=== PATIENT | male | born 1990 | race Caucasian/White ===

== ENCOUNTER 2020-05-24 23:44 | Emergency (ER) | payer MEDICAID, SELFPAY ==
--- NOTE | 2020-05-24 23:50 | ED.OVERDOSE ---
HPI - Overdose General Chief Complaint: ETOH/Substance Use Stated Complaint: etoh Time Seen by Provider: 05/24/20 23:47 History of Present Illness HPI Narrative: Patient is the young man hour the history of polysubstance abuse. Including alcohol, cocaine, heroin. Presented today completely agitated. Banging his head against a stretcher. Causing danger to himself. Patient refused to answer any questions. History of similar presentations in the past. Patient admits to using drugs. No suicidal homicidal ideation. Related Data Allergies Allergy/AdvReac Type Severity Reaction Status Date / Time acetaminophen [From TYLENOL] Allergy Unknown itchy Unverified 04/04/20 16:18 aspirin [ASA] AdvReac Unknown STOMACH Unverified 04/04/20 16:18 UPSET Review of Systems Review of Systems: Unable to obtain full review systems due to patient's condition. Yes Unobtainable due to mental status PMFSH Social History Social History Advance Directives: No Advance Directives Information Provided: No Physical Exam Vital Signs: Vital Signs: Last Vital Signs Temp 97.8 F 05/25/20 03:09 Pulse 70 05/25/20 03:24 Resp 18 05/25/20 03:24 BP 127/72 05/25/20 03:24 Pulse Ox 94 05/25/20 03:24 Body Mass Index 22.8 Appearance: Alert. Agitated Eyes: Pupils equal, round and reactive to light. ENT: Pharynx normal. Neck: Normal inspection. Neck supple. No lymph nodes noted. No crepitus CVS: Normal heart rate and rhythm. Pulses normal. Normal S1 and S2 Respiratory: No respiratory distress. Breath sounds normal. No Wheezing. No rales Abdomen: Soft and nontender. No rigidity. No distention. good BS x4 Skin: Skin warm and dry. Normal skin color. Normal skin turgor. Extremities: No lower extremity edema. Neurovascular intact to all extremities. No Lacerations. No Rash Neuro: Agitated banging his head against the stretcher Course Course Course Narrative: Patient completely agitated requiring chemical sedation as patient is unable to respond to verbal deescalation. Reevaluation(s) Reevaluation #1: Ketamine given. Will monitor very carefully Time: 00:01 MDM - Overdose MDM Narrative Medical decision making narrative: Patient extremely agitated requiring multiple doses of sedation including ketamine and also Haldol and Ativan. Now sleeping. Well appearing. Patient not suicidal homicidal will discharge patient home. Polysubstance abuse history. Patient told to stop using drugs Differential Diagnosis Differential diagnosis: Likely cocaine intoxication Medical Records Attestation: I reviewed the patient's medical records. Lab Data Attestation: I reviewed the patient's lab results. Labs: Lab Results 05/25/20 Range/Units 00:21 POC Glucose 97 (60-115) mg/dL Critical Care Time Critical Care Time Total Critical Care Time: 35 Attestation: I have personally provided 40 minutes of critical care time exclusive of time spent on separately billable procedures. Time includes review of lab data, radiology results, discussion with consultants, and monitoring for potential decompensation. Interventions were performed as documented above Discharge Plan Discharge Clinical Impression: Alcoholic intoxication, Substance abuse Patient Disposition: Home, Self-Care Instructions: Alcohol Intoxication (ED), Polysubstance Abuse (ED)
[2020-05-24 23:54] VITALS: BMI 22.8
[2020-05-24] MEDS: Ketamine HCl 500 MG/5 ML VIAL 250 MG IM (23:54)
--- NOTE | 2020-05-24 23:54 | PC.NURSE ---
Ketamine 250mg given IM to right deltoid. [address], ordered by . Security at bedside, belongings secured. Within visual field of nurse's station at ED Bed 22H. Will continue to monitor per protocol. Medicated shortly after arrival to ED due to combativeness/aggression with staff and EMS. Pt spitting at staff, swearing, threatening to hit staff. Pt admits to ETOH, cocaine, and heroin use.
[2020-05-25] VITALS (16 sets, daily range): BP systolic 111–145; BP diastolic 50–80; PULSE 70–102; RESP 16–18; TEMP 36.4–36.7; O2SAT 92–99
[2020-05-25 00:29] LABS: Glucose, Whole Blood 97 mg/dL (60-115)
--- NOTE | 2020-05-25 00:55 | PC.NURSE ---
Patient moaning and occasionally growling at staff. 4 point restraint remains. Previously given Ketamine at 23:54 on 05/24/2020. Will continue to monitor.
[2020-05-25] MEDS: Haloperidol Lactate 5 MG/ML VIAL IM (01:48)
[2020-05-25] MEDS: LORazepam 2 MG/ML VIAL IM (01:48)
--- NOTE | 2020-05-25 01:48 | PC.NURSE ---
Pt medicated with Ativan 2MG/Haldol 5MG IM to Right Thigh for behavioral control. Pt continues to scream and moan, is combative/agitated with staff. Slamming head against mattress. Refusing to answer questions. Will continue to monitor.
--- NOTE | 2020-05-25 03:24 | PC.NURSE ---
Bilateral Arm restraints removed. Security present. Pt continues to sleep/rest comfortably at this time. Vital signs remain stable. Will continue to monitor. Pt remains in clear view of staff at nurse's station.
--- NOTE | 2020-05-25 05:32 | PC.NURSE ---
PER , ALL BLOODWORK AND URINE SPECIMEN TO BE CANCELLED. DO NOT NEED TO COLLECT.
[2020-05-25 06:20] LABS: Glucose, Whole Blood 118 mg/dL (60-115)
== END 2020-05-25 06:28 | disposition home or self-care (01) ==
PROVIDERS: Emergency Provider Emergency Medicine Emergency Medical Services
DX: F10.129 Alcohol abuse with intoxication, unspecified (principal); F11.10 Opioid abuse, uncomplicated; F14.10 Cocaine abuse, uncomplicated; Y90.9 Presence of alcohol in blood, level not specified; Z71.51 Drug abuse counseling and surveillance of drug abuser
CPT/HCPCS: 82947; 96372; 99284; 99285; J2060

== ENCOUNTER 2020-05-25 07:21 | Emergency (ER) | payer MEDICAID, SELFPAY ==
[2020-05-25 07:28] VITALS: BP 113/64; PULSE 85; RESP 18; O2SAT 99; BMI 26.6
--- NOTE | 2020-05-25 07:36 | ED.PSYCH ---
HPI - Psych General Chief Complaint: ETOH/Substance Use Stated Complaint: TIREDNESS Time Seen by Provider: 05/25/20 07:36 Source: EMS Mode of arrival: EMS Limitations: altered mental status History of Present Illness HPI Narrative: patient found laying outside hospital after last ED visit when he was medicated for agitation MD complaint: altered mental status Onset (ago): hour(s) (few) Duration: constant History of same: Yes Relieving factors: none Exacerbating factors: medication (given 5mg haldol/2mg of ativan at 150 AM DC at 630AM) Context: recent drug abuse and new medication(s) Associated psychiatric symptoms: none Associated symptoms: denies other symptoms Treatments prior to arrival: none Related Data Allergies Allergy/AdvReac Type Severity Reaction Status Date / Time acetaminophen [From TYLENOL] Allergy Unknown itchy Unverified 04/04/20 16:18 aspirin [ASA] AdvReac Unknown STOMACH Unverified 04/04/20 16:18 UPSET Review of Systems Review of Systems: ROS unable to be obtained due to altered mental status [facility] Social History Social History (Updated 05/25/20 @ 07:38 by Magda Javed DO) Alcohol intake: current Smoking Status: Current every day smoker Use of substances other than those prescribed or required for medical reasons: Yes Advance Directives: No Advance Directives Information Provided: No Physical Exam Vital Signs: Vital Signs: Last Vital Signs Pulse 95 05/25/20 12:47 Resp 16 05/25/20 12:47 BP 127/77 05/25/20 12:47 Pulse Ox 97 05/25/20 09:12 Body Mass Index 26.6 Appearance: woken to sternal rub, withdraws from painful stimuli, unkempt, asleep Eyes: Pupils equal, round and reactive to light. ENT: Pharynx normal. Neck: Normal inspection. Neck supple. CVS: Normal heart rate and rhythm. Pulses normal. Respiratory: No respiratory distress. Breath sounds normal. able to protect airway Abdomen: Soft and nontender. Skin: Skin warm and dry. Normal skin color. Normal skin turgor. Extremities: No lower extremity edema. Neuro: moves extremities, withdraws from pain Course Course Course Narrative: patient has no complaints, awake and alert, offered detox, denies SI/HI wants to leave MDM - Psych MDM Narrative Medical decision making narrative: 29 yo male with substance abuse here with AMS from medications from previous visit - will need observation, no signs of trauma, dispo per clearance of substances Restraints Face to Face Assessment: [] Discharge Plan Discharge Clinical Impression: Substance abuse Patient Disposition: Home, Self-Care Instructions: Polysubstance Abuse (ED) Additional Instructions: return to ED for any worsening symptoms or concerns Referrals: [facility] [Physician] - 2 days (call hotline 08/02 at any time)
[2020-05-25 09:12] VITALS: BP 109/66; PULSE 94; O2SAT 97
[2020-05-25 10:15] VITALS: BP 120/72; PULSE 88; RESP 15
--- NOTE | 2020-05-25 10:17 | PC.NURSE ---
PT CONTINUES TO SLEEP, REPOSITIONS SELF. NO DISTRESS. RN WENT TO TALK WITH PT BUT HE KEPT EYES CLOSED AND ROLLED OVER.
[2020-05-25 12:47] VITALS: BP 127/77; PULSE 95; RESP 16
--- NOTE | 2020-05-25 12:48 | PC.NURSE ---
PT WOKE, TALKED WITH NURSE, ASKED HOW HE GOT HERE, EXPLAINED WHAT HAPPENED TO PT. PT CALM AND COOPERATIVE WITH STAFF. FELL BACK ASLEEP. WAS GIVEN DRINK AND FOOD. PT BROTHERS TO NOODLE MAKER WHEN HE IS READY FOR DC.
[2020-05-25 14:58] VITALS: BP 129/70; PULSE 89; RESP 20
--- NOTE | 2020-05-25 16:48 | PC.NURSE ---
call placed to brother who said he would be arriving in 20 minutes around 1530 to pickling grader patient, no answer.
[2020-05-25 16:53] VITALS: BP 128/68; PULSE 91; RESP 14; TEMP 36.8; O2SAT 96
[2020-05-27 08:26] LABS: Glucose, Whole Blood 114 mg/dL (60-115)
== END 2020-05-25 17:05 | disposition home or self-care (01) ==
PROVIDERS: Emergency Provider Emergency Medicine
DX: R41.82 Altered mental status, unspecified (principal); F17.200 Nicotine dependence, unspecified, uncomplicated; Z71.6 Tobacco abuse counseling
CPT/HCPCS: 82947; 99284

== ENCOUNTER 2020-06-08 03:23 | Inpatient (IN) | payer MEDICAID, SELFPAY ==
[2020-06-08] VITALS (9 sets, daily range): BP systolic 95–122; BP diastolic 38–78; PULSE 7–117; RESP 16–22; TEMP 36.6–37.4; O2SAT 93–100; BMI 27.1
--- NOTE | 2020-06-08 03:32 | ED_ITS ---
HPI - Fever General Chief Complaint: General Medical Stated Complaint: DRUG USE 20MIN AGO,FEVER,CHILLS,BODY PAIN SINCE Time Seen by Provider: 06/08/20 03:32 Source: patient and EMS Mode of arrival: EMS Limitations: no limitations History of Present Illness MD elicited complaint: fever and malaise Pertinent past history: other (IVDA) Onset (ago): minute(s) (20) Exacerbating factors: nothing Relieving factors: nothing Associated symptoms: chills, myalgias and chest pain Treatments prior to arrival fever: none Related Data Home Medications Medication Instructions Recorded Confirmed No Known Home Meds 06/08/20 06/08/20 Allergies Allergy/AdvReac Type Severity Reaction Status Date / Time aspirin [ASA] AdvReac Unknown STOMACH Verified 06/08/20 05:30 UPSET Review of Systems Review of Systems: Constitutional : No Weight loss, pos Fever, pos Chills ENT/Mouth : No sore throat, No Rhinorrhea Eyes: No Eye Pain, No Swelling Cardiovascular : pos Chest Pain, no SOB, no Dyspnea on Exertion, No Orthopnea, No Edema, No Palpitations Respiratory : No Cough, No Sputum Gastrointestinal : pos Nausea, No Vomiting, No Diarrhea, No abdominal Pain, No Hematochezia, No Melena Genitourinary : No Dysuria, No Urinary Frequency Musculoskeletal : No joint pain, pos Myalgias, No Joint Swelling Skin : No Skin Lesions, No rash Neuro : No Weakness, No Numbness, No Dizziness, No Headache Psych : No Anxiety/Panic, No Depression Heme/Lymph: No Bruising, No Lymphadenopathy Endocrine : No Polyuria, No Polydipsia All other systems reviewed and are negative [facility] Past Medical History Attestation statement: The following information was validated with the patient. Medical History (Updated 06/08/20 @ 06:22 by Magda Javed DO) Anxiety Polysubstance abuse Social History Social History (Updated 06/08/20 @ 03:36 by Magda Javed DO) Alcohol intake: never Smoking Status: Current every day smoker Use of substances other than those prescribed or required for medical reasons: Yes Substance Use Type: Crack/Cocaine and Heroin Substance Use Frequency: Daily Last Used Substance: Just Prior to Admission Any prior treatment program specific to substance use: Yes Advance Directives: No Physical Exam Vital Signs: Vital Signs: Last Vital Signs Temp 99 F 06/08/20 05:28 Pulse 117 H 06/08/20 05:41 Resp 22 H 06/08/20 05:33 BP 101/38 L 06/08/20 05:33 Pulse Ox 93 06/08/20 05:33 Body Mass Index 27.1 Appearance: Alert. Oriented X3. No acute distress. Eyes: Pupils equal, round and reactive to light. ENT: Pharynx normal. Neck: Normal inspection. Neck supple. CVS: Normal heart rate and rhythm. Pulses normal. Respiratory: No respiratory distress. Breath sounds normal. Abdomen: Soft and nontender. Skin: Skin warm and dry. Normal skin color. Normal skin turgor. Extremities: No lower extremity edema. No calf ttp Neuro: Oriented X 3. No motor deficit. No sensory deficit. Course Course Course Narrative: patient is awake no concern for opiate overdose but he had a large amount of emesis and had lower O2 sats afterwards, CT chest ordered for aspiration/pneumonia pending CT scan IV zosyn ordered empirically, aspirin held due to patient states he cannot tolerate it patient with very junky cough now post vomiting, already ordered zosyn, 88% on RA even after neb, planned admit at this time, seems most likely issue post vomiting, added on ddimer 94% on 2L NC MDM - Fever MDM Narrative Medical decision making narrative: 29 yo male with IVDA here with fevers/chills body aches 20 minutes after using IV cocaine c/o some chest pain as well at this time will need labs, cultures, lactic acid, CXR, PO motrin, COVID and flu swab - dispo per results and findings, could be cotton wool fever, doubt epidural abscess at this time given started 20 minutes after using Lab Data Result diagrams: 06/08/20 04:15 06/08/20 04:57 Labs: Lab Results 06/08/20 06/08/20 06/08/20 Range/Units 04:14 04:15 04:15 WBC 2.9 L (4.8-10.8) X10*3/uL RBC 4.76 (4.60-5.80) X10*6/uL Hgb 14.0 (14.0-18.0) g/dl Hct 41.8 L (42-52) % MCV 87.8 (80-98) fL MCH 29.4 (27.0-33.0) pg MCHC 33.5 (31.0-36.0) g/dl RDW 12.1 (11.0-16.0) % Plt Count 178 (160-400) X10*3/uL MPV 10.3 (9.4-12.4) fL Immature Gran % (Auto) 7.3 H (0.0-0.4) % Neut % (Auto) 61.7 (45-73) % Lymph % (Auto) 28.0 (20-40) % Garrett % (Auto) 0.3 L (2-11) % Eos % (Auto) 2.4 (0-4) % Baso % (Auto) 0.3 (0-2) % Lymph # (Auto) 0.8 L (1.2-4.9) X10*3/uL Garrett # (Auto) 0.0 L (0.1-1.2) X10*3/uL Eos # (Auto) 0.1 (0.0-0.4) X10*3/uL Baso # (Auto) 0.0 (0.0-0.2) X10*3/uL Abs Immat Gran (auto) 0.21 H (0.00-0.03) X10*3/uL Absolute Neuts (auto) 1.8 L (2.0-8.3) X10*3/uL Absolute Nucleated RBC 0.000 (0.0-0.012) X10*3/uL Nucleated RBC % (auto) 0.0 (0.0-0.2) /100WBC ESR (0-15) MM/HR PT 12.3 (10.8-13.0) SEC INR 1.0 (0.9-1.1) APTT 25.2 (24.1-38.0) SEC Hold Blue Top SEE NOTE Sodium Cancelled Potassium Cancelled Chloride Cancelled Carbon Dioxide Cancelled Anion Gap Cancelled BUN Cancelled Creatinine Cancelled Estim Creat Clear Calc Cancelled Estimated GFR Cancelled Random Glucose Cancelled Lactic Acid (0.5-2.0) mmol/L Calcium Cancelled Magnesium Cancelled Total Bilirubin Cancelled Direct Bilirubin Cancelled AST Cancelled ALT Cancelled Alkaline Phosphatase Cancelled Troponin I High Sens (<3.5-35.0) ng/L Total Protein Cancelled Albumin Cancelled Coronavirus (PCR) (Negative) Influenza Type A (PCR) (Negative) Influenza Type B (PCR) (Negative) RSV RNA Qual (PCR) (Negative) 06/08/20 06/08/20 06/08/20 Range/Units 04:15 04:16 04:16 WBC (4.8-10.8) X10*3/uL RBC (4.60-5.80) X10*6/uL Hgb (14.0-18.0) g/dl Hct (42-52) % MCV (80-98) fL MCH (27.0-33.0) pg MCHC (31.0-36.0) g/dl RDW (11.0-16.0) % Plt Count (160-400) X10*3/uL MPV (9.4-12.4) fL Immature Gran % (Auto) (0.0-0.4) % Neut % (Auto) (45-73) % Lymph % (Auto) (20-40) % Garrett % (Auto) (2-11) % Eos % (Auto) (0-4) % Baso % (Auto) (0-2) % Lymph # (Auto) (1.2-4.9) X10*3/uL Garrett # (Auto) (0.1-1.2) X10*3/uL Eos # (Auto) (0.0-0.4) X10*3/uL Baso # (Auto) (0.0-0.2) X10*3/uL Abs Immat Gran (auto) (0.00-0.03) X10*3/uL Absolute Neuts (auto) (2.0-8.3) X10*3/uL Absolute Nucleated RBC (0.0-0.012) X10*3/uL Nucleated RBC % (auto) (0.0-0.2) /100WBC ESR 13 (0-15) MM/HR PT (10.8-13.0) SEC INR (0.9-1.1) APTT (24.1-38.0) SEC Hold Blue Top Sodium Potassium Chloride Carbon Dioxide Anion Gap BUN Creatinine Estim Creat Clear Calc Estimated GFR Random Glucose Lactic Acid 1.5 (0.5-2.0) mmol/L Calcium Magnesium Total Bilirubin Direct Bilirubin AST ALT Alkaline Phosphatase Troponin I High Sens < 3.5 (<3.5-35.0) ng/L Total Protein Albumin Coronavirus (PCR) (Negative) Influenza Type A (PCR) (Negative) Influenza Type B (PCR) (Negative) RSV RNA Qual (PCR) (Negative) 06/08/20 06/08/20 Range/Units 04:17 04:57 WBC (4.8-10.8) X10*3/uL RBC (4.60-5.80) X10*6/uL Hgb (14.0-18.0) g/dl Hct (42-52) % MCV (80-98) fL MCH (27.0-33.0) pg MCHC (31.0-36.0) g/dl RDW (11.0-16.0) % Plt Count (160-400) X10*3/uL MPV (9.4-12.4) fL Immature Gran % (Auto) (0.0-0.4) % Neut % (Auto) (45-73) % Lymph % (Auto) (20-40) % Garrett % (Auto) (2-11) % Eos % (Auto) (0-4) % Baso % (Auto) (0-2) % Lymph # (Auto) (1.2-4.9) X10*3/uL Garrett # (Auto) (0.1-1.2) X10*3/uL Eos # (Auto) (0.0-0.4) X10*3/uL Baso # (Auto) (0.0-0.2) X10*3/uL Abs Immat Gran (auto) (0.00-0.03) X10*3/uL Absolute Neuts (auto) (2.0-8.3) X10*3/uL Absolute Nucleated RBC (0.0-0.012) X10*3/uL Nucleated RBC % (auto) (0.0-0.2) /100WBC ESR (0-15) MM/HR PT (10.8-13.0) SEC INR (0.9-1.1) APTT (24.1-38.0) SEC Hold Blue Top Sodium 137 Potassium 3.9 Chloride 99 Carbon Dioxide 29 Anion Gap 13 BUN 16 Creatinine 0.95 Estim Creat Clear Calc 119.5 Estimated GFR > 60 Random Glucose 98 Lactic Acid (0.5-2.0) mmol/L Calcium 9.0 Magnesium 1.7 Total Bilirubin 0.7 Direct Bilirubin 0.4 AST 171 H ALT 59 H Alkaline Phosphatase 155 H Troponin I High Sens (<3.5-35.0) ng/L Total Protein 6.6 Albumin 3.9 Coronavirus (PCR) NEGATIVE (Negative) Influenza Type A (PCR) NEGATIVE (Negative) Influenza Type B (PCR) NEGATIVE (Negative) RSV RNA Qual (PCR) NEGATIVE (Negative) ECG Data ECG #1: Attestation: I personally reviewed and interpreted this ECG as follows: ECG interpretation date: 06/08/20 ECG interpretation time: 05:28 Interpretation: Rate: 115 Rhythm: sinus tachycardia [place]: normal Normal P waves. Normal [place]. Normal QRS complex. ST T wave : no LUIS FELIPE, nonspecific qTC: normal prior studies: no acute ischemia The study has been interpreted contemporaneously by me. . Discharge Plan Discharge Clinical Impression: Hypoxia, Atypical chest pain, Active substance abuse Vomiting Qualifiers: Vomiting type: unspecified Vomiting Intractability: unspecified Nausea presence: with nausea Qualified Code(s): R11.2 - Nausea with vomiting, unsp ecified Patient Disposition: Admitted As Inpatient
--- NOTE | 2020-06-08 03:33 | ECG_ITS ---
Test Reason : CHEST PAIN Blood Pressure : / mmHG Vent. Rate : 115 BPM Atrial Rate : 115 BPM P-R Int : 118 ms QRS Dur : 084 ms QT Int : 320 ms P-R-T Axes : 074 047 017 degrees QTc Int : 442 ms Sinus tachycardia Nonspecific ST abnormality Abnormal ECG When compared with ECG of 31-AUG-2019 16:52, Heart rate has increased Nonspecific T wave abnormality is new Referred By: Magda Javed Electronically Signed By:TORRES GARCIAS MD
--- NOTE | 2020-06-08 03:33 | XR_ITS ---
EXAMINATION: XR CHEST CLINICAL INFORMATION: Pain COMPARISON: 08/28/2019 TECHNIQUE: Frontal view of the chest was obtained. FINDINGS: Lung volumes are symmetric. No focal consolidation is seen. No evidence of pneumothorax, pleural effusion, or pulmonary edema. The cardiomediastinal contour is unremarkable. No acute osseous findings are seen. XR/XR chest 1V IMPRESSION: No acute cardiopulmonary findings.
--- NOTE | 2020-06-08 03:45 | PC.NURSE ---
PT TO ROOM, CHG INTO GOWN AND MD AT BEDSIDE FOR EVAL. HL PLACED TO RIGHT UPPER ARM. PT IS A DIFFICULT STICK. LABS DRAWN TO LAB, BC X 2 OBTAINED AT THIS TIME.
--- NOTE | 2020-06-08 04:15 | PC.NURSE ---
LABS RE-DRAWN TO LAB.
[2020-06-08 04:22] LABS: Basophils Percent Auto 0.3 % (0-2); Eosinophils Absolute Auto 0.1 X10*3/uL (0.0-0.4); Eosinophils Percent Auto 2.4 % (0-4); Hematocrit 41.8 % (42-52); Imm Gran Abs Auto 0.21 X10*3/uL (0.00-0.03); Imm Gran Pct Auto 7.3 % (0.0-0.4); Lymphocytes Absolute Auto 0.8 X10*3/uL (1.2-4.9); MANUAL DIFF FLAG NO; Mean Corpuscular HGB Conc 33.5 g/dl (31.0-36.0); Mean Corpuscular Hemoglobin 29.4 pg (27.0-33.0); Mean Corpuscular Volume 87.8 fL (80-98); Mean Platelet Volume 10.3 fL (9.4-12.4); Monocytes Percent Auto 0.3 % (2-11); Neutrophils Absolute Auto 1.8 X10*3/uL (2.0-8.3); Neutrophils Percent Auto 61.7 % (45-73); Platelet Count 178 X10*3/uL (160-400); Red Blood Count 4.76 X10*6/uL (4.60-5.80); Red Cell Distribution Width 12.1 % (11.0-16.0); SCAN SMEAR FLAG 1; White Blood Count 2.9 X10*3/uL (4.8-10.8)
[2020-06-08] MEDS: Ibuprofen 600 MG TABLET PO (04:22)
[2020-06-08 04:34] LABS: Prothrombin Time 12.3 SEC (10.8-13.0)
[2020-06-08 04:37] LABS: Partial Thromboplastin Time 25.2 SEC (24.1-38.0)
[2020-06-08 04:39] LABS: Lactic Acid 1.5 mmol/L (0.5-2.0)
[2020-06-08 04:55] LABS: Erythrocyte Sedimentation Rate 13 MM/HR (0-15)
[2020-06-08] MEDS: ondansetron HCL 4 MG/2 ML VIAL IVPUSH (05:07)
--- NOTE | 2020-06-08 05:16 | PC.NURSE ---
PT VOMITED A LARGE AMT OF VOMIT ON THE FLOOR. MD AWARE AND PT MEDICATED WITH ZOFRAN IV PER EMAR.
[2020-06-08 05:20] LABS: Influenza A PCR NEGATIVE (Negative); Influenza B PCR NEGATIVE (Negative); Resp Syncy Virus RNA Qual PCR NEGATIVE (Negative); SARS COV2 PCR INHOUSE NEGATIVE (Negative)
--- NOTE | 2020-06-08 05:20 | PC.NURSE ---
PT TO ROOM
[2020-06-08 05:22] LABS: Troponin-I High Sensitivity < 3.5 ng/L (<3.5-35.0)
--- NOTE | 2020-06-08 05:24 | PC.NURSE ---
EKG OBTAINED TO
--- NOTE | 2020-06-08 05:31 | CT_ITS ---
EXAMINATION: CT CHEST WITHOUT CONTRAST CLINICAL INFORMATION: Fever, hypoxia after vomiting COMPARISON: Chest x-ray from earlier today TECHNIQUE: Multidetector volumetric CT imaging of the chest was done. Axial MIP volume rendering provided. Sagittal and coronal reformatted images were obtained. This CT examination was performed using dose optimization techniques as appropriate, variously including the following: *Automated exposure control *Adjustment of mA and/or kV according to patient size (this includes techniques or standardized protocols for targeted exams where dose is matched to indication/reason for exam; i.e. extremities or head) *Use of iterative reconstruction technique DLP: 263 mGy-cm FINDINGS: LUNGS: There are patchy dependent opacities in the bilateral lower lobes. Remainder of the lungs are clear. MEDIASTINUM: The visualized thyroid gland is unremarkable. Residual thymic tissue is suspected in the anterior mediastinum. There is suggestion of a borderline enlarged subcarinal lymph node, suboptimally assessed without intravenous contrast. Cardiac size is within normal limits; no pericardial effusion. PLEURA: Trace pleural effusions, right greater than left. No pneumothorax. AXILLA: No lymphadenopathy. UPPER ABDOMEN: Included portions of the liver and spleen appear prominent in size. OSSEOUS STRUCTURES: No acute findings identified. CT/CT chest wo con IMPRESSION: Patchy dependent opacities in the bilateral lower lobes. In the setting of recent vomiting and fever, this could reflect sequelae of aspiration and/or pneumonia. Trace pleural effusions, right greater than left.
[2020-06-08 05:40] LABS: Alanine Aminotransferase 59 U/L (0-40); Albumin Level 3.9 g/dL (3.5-5.0); Alkaline Phosphatase 155 U/L (39-117); Anion Gap 13 (12-20); Aspartate Amino Transferase 171 U/L (5-37); Bilirubin Direct 0.4 mg/dL (0.0-0.5); Bilirubin Total 0.7 mg/dL (0.0-1.0); Blood Urea Nitrogen 16 mg/dL (9-16); Carbon Dioxide 29 mmol/L (22-29); Chloride 99 mmol/L (96-108); Creatinine Clr Calc Pharmacy 119.5; Estimated Glomerular Filt Rate > 60; Glucose Random 98 mg/dL (60-115); Magnesium 1.7 mg/dL (1.6-2.6); Potassium 3.9 mmol/l (3.3-5.1); Sodium 137 mmol/L (135-145); Total Protein 6.6 g/dL (6.5-8.0)
[2020-06-08] MEDS: Albuterol Sulfate (0.083%) 2.5 MG/3 ML VIAL.NEB INHALE (05:41)
--- NOTE | 2020-06-08 05:53 | PC.NURSE ---
PT'S PO DROPS TO 88%, PT ENCOURAGE TO SIT UP AND TAKE DEEP BREATHS, PT REFUSING TO SIT UP, PT STATES WHEN I SIT UP IT MAKES ME NAUSEATED. PT ON 4L NC. AWARE. RESPIRATORY IN ROOM FOR RESPIRATORY TX. .
--- NOTE | 2020-06-08 05:56 | PC.NURSE ---
PT RETURNS TO ROOM IN STRETCHER. PT GIVEN URINAL FOR URINE SAMPLE.
--- NOTE | 2020-06-08 06:38 | PC.NURSE ---
IN ROOM FOR RE-EVAL. PT NOW ON 2L NC WITH PO 96% MD AWARE. PT REQUESTING KRUNAL MYRIAM TO DRINK. UA SENT TO LAB.
[2020-06-08 06:41] LABS: D Dimer 3593 NG/ML
--- NOTE | 2020-06-08 06:47 | CT_ITS ---
EXAMINATION: CT ANGIOGRAM CHEST CLINICAL INFORMATION: Elevated d-dimer. Evaluate for pulmonary embolism COMPARISON: Previous chest x-ray and noncontrast enhanced chest CT from earlier the same day TECHNIQUE: Multiple axial images were obtained through the chest after the administration of 65 mL of Omnipaque 350 intravenous contrast. Extensive vascular post-processing including two-dimensional and three-dimensional reformatted images were created and reviewed on an independent workstation. This CT examination was performed using dose optimization techniques as appropriate, variously including the following: *Automated exposure control *Adjustment of mA and/or kV according to patient size (this includes techniques or standardized protocols for targeted exams where dose is matched to indication/reason for exam; i.e. extremities or head) *Use of iterative reconstruction technique DLP: 256 mGy-cm FINDINGS: There is good opacification of the pulmonary arteries. No pulmonary embolism is seen. There is dependent atelectasis seen at the lung bases. The lungs are otherwise clear. There is a shotty mediastinal and bilateral hilar lymphadenopathy. There is a prominent soft tissue seen in the subcarinal region. This may represent wall thickening of the esophagus as opposed to lymphadenopathy. No abnormal air collection in the mediastinum is seen. The heart does not appear enlarged. The thoracic aorta is normal in caliber. There is no pericardial effusion. There is trace bilateral pleural effusions. No chest wall mass or enlarged axillary lymph nodes are seen. Images through the upper abdomen are unremarkable. Review at bone windows is normal. CT/CT angio chest IMPRESSION: No evidence of pulmonary embolism. Shotty mediastinal and bilateral hilar lymphadenopathy. Prominent soft tissue in the subcarinal region, question related to wall thickening of the esophagus as opposed to lymphadenopathy. Clinical correlation recommended. Dependent atelectasis at the lung bases and trace bilateral pleural effusions.
[2020-06-08 06:51] LABS: Glucose Urine UA NEG (NEG); Leukocyte Esterase Urine NEG (NEG); Nitrite Urine NEG (NEG); Urine Blood NEG (NEG); Urine Ketones NEG (NEG); Urine Protein NEG (NEG-TRACE)
[2020-06-08 06:52] LABS: Appearance Urine CLEAR; Color Urine YELLOW
[2020-06-08 07:23] LABS: Amphetamine Screen Urine Not Detected (Not Detect); Barbiturates, Urine Not Detected (Not Detect); Benzodiazepines Screen Urine POSITIVE (Not Detect); Cannabinoid Screen Urine Not Detected (Not Detect); Cocaine Screen Urine POSITIVE (Not Detect); Opiate Screen Urine POSITIVE (Not Detect); Phencyclidine Screen Urine Not Detected (Not Detect)
[2020-06-08] MEDS: Piperacillin Sodium/Tazobactam 3.375 GM in 0.9 % Sodium Chloride 50 ML IV ×3 (08:00→19:27)
[2020-06-08] MEDS: iohexoL 350 MG/ML 100 ML INFUS..BTL IV (08:04)
--- NOTE | 2020-06-08 08:09 | PM.IMHP ---
History of Present Illness Date of Service: 06/08/20 Chief Complaint: weakness shortness of breath 29-year-old male with significant history of drug abuse presented with feeling feverish body ache and chest pain, patient reported he shooted herione and cocaine last night and started having body aches chest pain 1 hour after injecting, patient also reported vomiting and nausea, patient denies any sick contact, patient was also reporting shortness of breath and cough, in the ER CT chest shows bilateral patchy opacities, COVID PCR was negative patient was given 1 dose of Zosyn and inpatient admission was requested Review of Systems Constitutional: Constitutional: Reports weakness Cardiovascular: Cardiovascular: Reports dyspnea Respiratory: Respiratory: Reports cough and Reports dyspnea Gastrointestinal: Gastrointestinal: Reports nausea and Reports vomiting Neurologic: Denies Sensory deficit (Neuro) [facility] Medical History (Updated 06/08/20 @ 14:00 by Tuan Hill MD) Anxiety Polysubstance abuse Family History (Updated 06/08/20 @ 13:57 by Tuan Hill MD) Other HTN (hypertension) Surgical History (Updated 06/08/20 @ 13:58 by Tuan Hill MD) No pertinent past surgical history Social History (Updated 06/08/20 @ 03:36 by Magda Javed DO) Household Members: Family Alcohol intake: never Smoking Status: Current every day smoker Tobacco Type: Cigarette Packs Per Day: 0.5 Cigarettes Per Day: 10.0 Years Smoked: 8 Smoked in Last 30 Days: Yes Patient Interested in Nicotine Replacement: Yes Patient Given Instructions on How to Stop Smoking: No Second Hand Smoke Exposure: Yes Use of substances other than those prescribed or required for medical reasons: Yes Substance Use Type: Crack/Cocaine, Heroin, IV Drugs, Opiates and Painkillers Substance Use Frequency: Chronic Longstanding Last Used Substance: Just Prior to Admission Currently Displaying Signs/Symptoms of Drug Intoxication Withdrawal: No Any prior treatment program specific to substance use: Yes Have you been hit, kicked, punched, or otherwise hurt by someone within the past year? If so, by whom?: No Do you feel safe in your current relationship?: No Current Relationship Is there a partner from a previous relationship who is making you feel unsafe now?: No Are you made to feel afraid or neglected: No Advance Directives: No Do you have thoughts of harming others: None Do you have a plan to hurt others: No Plan Recently lost weight without trying: Yes Meds Allergies Allergy/AdvReac Type Severity Reaction Status Date / Time aspirin [ASA] AdvReac Unknown STOMACH Verified 06/08/20 05:30 UPSET Home Medications Medication Instructions Recorded Confirmed Type No Known Home Meds 06/08/20 06/08/20 History Physical Exam Vital Signs and Narrative: Vital Signs: Last Vital Signs Temp 99.4 F 06/08/20 08:00 Pulse 93 06/08/20 08:00 Resp 19 06/08/20 08:00 BP 99/51 L 06/08/20 08:00 Pulse Ox 97 06/08/20 08:00 Body Mass Index 27.1 Const: General: no acute distress Resp: Auscultation: rhonchi Cardio: Jugular venous distension: no JVD Heart sounds: S1 normal heart sound present and S2 normal heart sound present GI: Inspection: Yes normal to inspection Palpation (GI): nontender Auscultation: normal bowel sounds Skin: General skin exam: no rashes or lesions noted Neuro: Sensory Exam: No Sensory deficit (Neuro) Results Labs CBC and Chem 7: 06/08/20 04:15 06/08/20 04:57 Labs: Laboratory Results - last 24 hr 06/08/20 06/08/20 06/08/20 04:14 04:15 04:15 MCV 87.8 MCH 29.4 MCHC 33.5 RDW 12.1 Plt Count 178 MPV 10.3 Immature Gran % (Auto) 7.3 H Neut % (Auto) 61.7 Lymph % (Auto) 28.0 [place] % (Auto) 0.3 L Eos % (Auto) 2.4 Baso % (Auto) 0.3 Lymph # (Auto) 0.8 L [place] # (Auto) 0.0 L Eos # (Auto) 0.1 Baso # (Auto) 0.0 Abs Immat Gran (auto) 0.21 H Absolute Neuts (auto) 1.8 L Absolute Nucleated RBC 0.000 Nucleated RBC % (auto) 0.0 ESR PT 12.3 INR 1.0 APTT 25.2 D-Dimer [id number] Hold Blue Top SEE NOTE Anion Gap Cancelled Estim Creat Clear Calc Cancelled Estimated GFR Cancelled Random Glucose Cancelled Lactic Acid Calcium Cancelled Magnesium Cancelled Total Bilirubin Cancelled Direct Bilirubin Cancelled AST Cancelled ALT Cancelled Alkaline Phosphatase Cancelled Troponin I High Sens Total Protein Cancelled Albumin Cancelled Urine Color Urine Appearance Urine pH Ur Specific [employer] Urine Protein Urine Glucose (UA) Urine Ketones Urine Blood Urine Nitrite Ur Leukocyte Esterase Urine Opiates Screen Ur Barbiturates Screen Ur Phencyclidine Scrn Ur Amphetamines Screen U Benzodiazepines Scrn Urine Cocaine Screen U Marijuana (THC) Screen Coronavirus (PCR) Influenza Type A (PCR) Influenza Type B (PCR) RSV RNA Qual (PCR) 06/08/20 06/08/20 06/08/20 04:15 04:16 04:16 MCV MCH MCHC RDW Plt Count MPV Immature Gran % (Auto) Neut % (Auto) Lymph % (Auto) [place] % (Auto) Eos % (Auto) Baso % (Auto) Lymph # (Auto) [place] # (Auto) Eos # (Auto) Baso # (Auto) Abs Immat Gran (auto) Absolute Neuts (auto) Absolute Nucleated RBC Nucleated RBC % (auto) ESR 13 PT INR APTT D-Dimer Hold Blue Top Anion Gap Estim Creat Clear Calc Estimated GFR Random Glucose Lactic Acid 1.5 Calcium Magnesium Total Bilirubin Direct Bilirubin AST ALT Alkaline Phosphatase Troponin I High Sens < 3.5 Total Protein Albumin Urine Color Urine Appearance Urine pH Ur Specific [employer] Urine Protein Urine Glucose (UA) Urine Ketones Urine Blood Urine Nitrite Ur Leukocyte Esterase Urine Opiates Screen Ur Barbiturates Screen Ur Phencyclidine Scrn Ur Amphetamines Screen U Benzodiazepines Scrn Urine Cocaine Screen U Marijuana (THC) Screen Coronavirus (PCR) Influenza Type A (PCR) Influenza Type B (PCR) RSV RNA Qual (PCR) 06/08/20 06/08/20 06/08/20 04:17 04:57 06:37 MCV MCH MCHC RDW Plt Count MPV Immature Gran % (Auto) Neut % (Auto) Lymph % (Auto) [place] % (Auto) Eos % (Auto) Baso % (Auto) Lymph # (Auto) [place] # (Auto) Eos # (Auto) Baso # (Auto) Abs Immat Gran (auto) Absolute Neuts (auto) Absolute Nucleated RBC Nucleated RBC % (auto) ESR PT INR APTT D-Dimer Hold Blue Top Anion Gap 13 Estim Creat Clear Calc 119.5 Estimated GFR > 60 Random Glucose 98 Lactic Acid Calcium 9.0 Magnesium 1.7 Total Bilirubin 0.7 Direct Bilirubin 0.4 AST 171 H ALT 59 H Alkaline Phosphatase 155 H Troponin I High Sens Total Protein 6.6 Albumin 3.9 Urine Color YELLOW Urine Appearance CLEAR Urine pH 6.0 Ur Specific [employer] 1.020 Urine Protein NEG Urine Glucose (UA) NEG Urine Ketones NEG Urine Blood NEG Urine Nitrite NEG Ur Leukocyte Esterase NEG Urine Opiates Screen Ur Barbiturates Screen Ur Phencyclidine Scrn Ur Amphetamines Screen U Benzodiazepines Scrn Urine Cocaine Screen U Marijuana (THC) Screen Coronavirus (PCR) NEGATIVE Influenza Type A (PCR) NEGATIVE Influenza Type B (PCR) NEGATIVE RSV RNA Qual (PCR) NEGATIVE 06/08/20 06:37 MCV MCH MCHC RDW Plt Count MPV Immature Gran % (Auto) Neut % (Auto) Lymph % (Auto) [place] % (Auto) Eos % (Auto) Baso % (Auto) Lymph # (Auto) [place] # (Auto) Eos # (Auto) Baso # (Auto) Abs Immat Gran (auto) Absolute Neuts (auto) Absolute Nucleated RBC Nucleated RBC % (auto) ESR PT INR APTT D-Dimer Hold Blue Top Anion Gap Estim Creat Clear Calc Estimated GFR Random Glucose Lactic Acid Calcium Magnesium Total Bilirubin Direct Bilirubin AST ALT Alkaline Phosphatase Troponin I High Sens Total Protein Albumin Urine Color Urine Appearance Urine pH Ur Specific [employer] Urine Protein Urine Glucose (UA) Urine Ketones Urine Blood Urine Nitrite Ur Leukocyte Esterase Urine Opiates Screen POSITIVE H Ur Barbiturates Screen Not Detected Ur Phencyclidine Scrn Not Detected Ur Amphetamines Screen Not Detected U Benzodiazepines Scrn POSITIVE H Urine Cocaine Screen POSITIVE H U Marijuana (THC) Screen Not Detected Coronavirus (PCR) Influenza Type A (PCR) Influenza Type B (PCR) RSV RNA Qual (PCR) Imaging Radiologist's Impressions: Impressions Chest X-Ray 06/08/20 03:33 IMPRESSION: No acute cardiopulmonary findings. Chest CT 06/08/20 05:31 IMPRESSION: Patchy dependent opacities in the bilateral lower lobes. In the setting of recent vomiting and fever, this could reflect sequelae of aspiration and/or pneumonia. Trace pleural effusions, right greater than left. Assessment and Plan (1) Sepsis: Status: Acute (2) Aspiration pneumonia: Status: Acute (3) Hypoxia: Status: Acute (4) Vomiting: Qualifiers: Nausea presence: with nausea Vomiting Intractability: unspecified Vomiting type: unspecified Qualified Code(s): R11.2 - Nausea with vomiting, unspecified Status: Acute (5) Atypical chest pain: Status: Acute (6) Active substance abuse: Status: Acute 29-year-old male IV drug user presented with nausea vomiting body aches chest pain and shortness of breath Sepsis likely secondary to aspiration pneumonia rule out bacteremia given IV drug use will start on Vanco and Zosyn follow-up cultures monitor Vanco trough continue oxygen supplementation active IV drug user with drug dependence urine toxicology positive for cocaine and opioid no signs of withdrawal at this time monitor closely for withdrawal Will get care team consult chest pain likely secondary to cocaine use and pneumonia high sensitivity troponin negative EKG shows no ischemia ACS less likely continue supportive management DVT prophylaxis with Lovenox
--- NOTE | 2020-06-08 08:40 | PC.NURSE ---
RECEIVED REPORT SANTHOSH PETTIT RN THIS AM AT 0700. PT AWAITING ADMISSION FOR BILAT PNEUMONIA. ZOSYN UP PER ORDERS. HAD CHEST CTA FOR ELEVATED D-DIMMER.
--- NOTE | 2020-06-08 10:33 | PC.NURSE ---
PT HAS BED ASSIGNED ON [facility]. AWAITING REPORT TO BE GIVEN. VITALS UPDATED
--- NOTE | 2020-06-08 11:18 | PC.NURSE ---
call to [facility]. rn will call ed for report.
[2020-06-08] MEDS: 0.9 % Sodium Chloride 1,000 ML 100 ML IVCONT ×2 (13:25→22:09)
[2020-06-08] MEDS: Enoxaparin Sodium 40 MG/0.4 ML SYRINGE SUBCUT (13:30)
[2020-06-08] MEDS: vancomycin HCL 1,000 MG in 0.9 % Sodium Chloride 250 ML 270 MG IV ×2 (13:56→21:27)
--- NOTE | 2020-06-08 15:28 | PC.NURSE ---
pt has been tearful, also yelling at staff, occasionally swearing. She states she wants to go home and does not understand why she is being kept here, also wants her son to visit. Attempted to reorient PT to situation, she states understanding but remains tearful. Pt states she is 89 years old and ready to go . Explored comfort options with pt, she states she will try getting up to a recliner.
[2020-06-09] VITALS (9 sets, daily range): BP systolic 116–142; BP diastolic 64–86; PULSE 60–87; RESP 16–18; TEMP 36.4–37.2; O2SAT 97–100
[2020-06-09] MEDS: 0.9 % Sodium Chloride Flush 3 ML SYRINGE IVFLUSH (00:07)
[2020-06-09] MEDS: LORazepam 2 MG/ML VIAL 1 MG IVPUSH ×2 (00:07→15:29)
[2020-06-09] MEDS: vancomycin HCL 1,000 MG in 0.9 % Sodium Chloride 250 ML 270 MG IV ×2 (04:25→14:31)
[2020-06-09] MEDS: Acetaminophen 325 MG TABLET 650 MG PO (04:36)
[2020-06-09 06:34] LABS: MANUAL DIFF FLAG NO
[2020-06-09 06:44] LABS: Basophils Absolute Auto 0.1 X10*3/uL (0.0-0.2); Basophils Percent Auto 0.4 % (0-2); Eosinophils Absolute Auto 0.5 X10*3/uL (0.0-0.4); Eosinophils Percent Auto 4.5 % (0-4); Hematocrit 35.1 % (42-52); Hemoglobin 11.8 g/dl (14.0-18.0); Imm Gran Abs Auto 0.05 X10*3/uL (0.00-0.03); Imm Gran Pct Auto 0.4 % (0.0-0.4); Lymphocytes Absolute Auto 1.4 X10*3/uL (1.2-4.9); Lymphocytes Percent Auto 12.9 % (20-40); Mean Corpuscular HGB Conc 33.6 g/dl (31.0-36.0); Mean Corpuscular Hemoglobin 29.3 pg (27.0-33.0); Mean Corpuscular Volume 87.1 fL (80-98); Mean Platelet Volume 11.2 fL (9.4-12.4); Monocytes Absolute Auto 0.5 X10*3/uL (0.1-1.2); Neutrophils Absolute Auto 8.6 X10*3/uL (2.0-8.3); Neutrophils Percent Auto 77.8 % (45-73); Platelet Count 192 X10*3/uL (160-400); Red Blood Count 4.03 X10*6/uL (4.60-5.80); Red Cell Distribution Width 12.3 % (11.0-16.0); White Blood Count 11.1 X10*3/uL (4.8-10.8)
[2020-06-09] MEDS: Piperacillin Sodium/Tazobactam 3.375 GM in 0.9 % Sodium Chloride 50 ML IV ×4 (06:54→19:24)
[2020-06-09 07:01] LABS: Anion Gap 10 (12-20); Blood Urea Nitrogen 18 mg/dL (9-16); Carbon Dioxide 26 mmol/L (22-29); Chloride 106 mmol/L (96-108); Estimated Glomerular Filt Rate > 60; Glucose Random 97 mg/dL (60-115); Potassium 3.8 mmol/l (3.3-5.1); Sodium 138 mmol/L (135-145)
[2020-06-09 07:29] LABS: Calcium 8.3 mg/dL (8.4-10.2)
[2020-06-09] MEDS: 0.9 % Sodium Chloride 1,000 ML 100 ML IVCONT ×2 (09:12→20:07)
[2020-06-09] MEDS: Morphine Sulfate 2 MG/ML CARTRIDGE IVPUSH ×2 (11:21→20:02)
[2020-06-09] MEDS: Enoxaparin Sodium 40 MG/0.4 ML SYRINGE SUBCUT (12:30)
[2020-06-09 12:38] LABS: Vancomycin Trough 11.7 mcg/mL (10.0-20.0)
[2020-06-09] MEDS: cloNIDine HCL 0.1 MG TABLET PO (14:29)
--- NOTE | 2020-06-09 15:21 | HO.PM.IMPN ---
Subjective Subjective Date of Service: 06/09/20 Interval History: Patient seen and examined at bedside patient reported body aches and trouble breathing Constitutional Constitutional: Reports weakness Cardiovascular Cardiovascular: Reports dyspnea Respiratory Respiratory: Reports cough and Reports dyspnea Gastrointestinal Gastrointestinal: Reports nausea and Reports vomiting Neurologic Neurologic: Denies Sensory deficit (Neuro) and Reports weakness Physical Exam Const: General: no acute distress Resp: Auscultation: rhonchi Cardio: Jugular venous distension: no JVD Heart sounds: S1 normal heart sound present and S2 normal heart sound present GI: Inspection: Yes normal to inspection Palpation (GI): nontender Auscultation: normal bowel sounds Skin: General skin exam: no rashes or lesions noted Neuro: Sensory Exam: No Sensory deficit (Neuro) Objective Data Current Medications Generic Name Dose Route Start Last Admin Trade Name Freq PRN Reason Stop Dose Admin Acetaminophen 650 mg 06/09/20 04:26 06/09/20 04:36 Acetaminophen 325 Mg Tablet PO 650 mg Q6H PRN Administration Pain and Fever Clonidine HCl 0.1 mg 06/09/20 15:00 06/09/20 14:29 Clonidine Hcl 0.1 Mg Tablet PO 0.1 mg TID PRN Administration Opiate Withdrawal Protocol Enoxaparin Sodium 40 mg 06/08/20 13:00 06/09/20 12:30 Enoxaparin Sodium 40 Mg/0.4 Ml Syringe SUBCUT 40 mg Q24H MAIRA Administration Sodium Chloride 1,000 mls @ 100 mls/hr 06/08/20 12:01 06/09/20 09:12 Ns IVCONT 100 mls/hr .Q10H MAIRA Infusion Piperacillin Sod/Tazobactam 50 mls @ 100 mls/hr 06/08/20 12:01 06/09/20 12:29 Sod 3.375 gm/ Sodium Chloride IV 100 mls/hr Q6H MAIRA Administration Vancomycin HCl 1,000 mg/ 270 mls @ 270 mls/hr 06/08/20 13:00 06/09/20 14:31 Sodium Chloride IV 270 mls/hr Q8H MAIRA Administration Lorazepam 1 mg 06/08/20 12:01 06/09/20 00:07 Lorazepam 2 Mg/Ml Vial IVPUSH 1 mg Q6H PRN Administration anxiety/restlessness Morphine Sulfate 2 mg 06/09/20 10:39 06/09/20 11:21 Morphine Sulfate 2 Mg/Ml Cartridge IVPUSH 2 mg Q4H PRN Administration Pain, Severe (Pain Scale 7-10) Ondansetron HCl 4 mg 06/08/20 12:01 Ondansetron Hcl 4 Mg/2 Ml Vial IVPUSH Q6H PRN Vomiting Sodium Chloride 3 ml 06/08/20 16:00 06/09/20 06:52 0.9 % Sodium Chloride Flush 3 Ml Syringe IVFLUSH Not Given QSHIFT MAIRA Labs CBC & Chem 7: 06/09/20 06:09 06/09/20 06:09 Microbiology Microbiology Results: Microbiology 06/08/20 04:14 Blood - Venous Blood Culture - Preliminary No growth after 24 hours. 06/08/20 04:14 Blood - Venous Blood Culture - Preliminary No growth after 24 hours. Assessment and Plan (1) Sepsis: Status: Acute (2) Aspiration pneumonia: Status: Acute (3) Hypoxia: Status: Acute (4) Vomiting: Status: Acute (5) Atypical chest pain: Status: Acute (6) Active substance abuse: Status: Acute Assessment and Plan: 29-year-old male IV drug user presented with nausea vomiting body aches chest pain and shortness of breath Sepsis likely secondary to aspiration pneumonia rule out bacteremia given IV drug use continue Vanco and Zosyn blood culture pending monitor Vanco trough continue oxygen supplementation Active IV drug user with drug dependence urine toxicology positive for cocaine and opioid continue Ativan and clonidine for withdrawal patient is interested in Suboxone will get psych consult tomorrow for Suboxone Chest pain likely secondary to cocaine use and pneumonia resolved high sensitivity troponin negative EKG shows no ischemia ACS less likely continue supportive management DVT prophylaxis with Lovenox
--- NOTE | 2020-06-09 16:19 | MHC.CM.PN ---
CM ATTEMPTED TO SEE PT WHO IS SLEEPING AND DOES NOT RESPOND TO CM KNOCK OR HIS NAME BEING CALLED. CM WILL REVISIT TOMORROW
[2020-06-09 20:51] LABS: Vancomycin Trough 15.3 mcg/mL (10.0-20.0)
[2020-06-10] MEDS: Morphine Sulfate 2 MG/ML CARTRIDGE IVPUSH ×2 (01:04→08:49)
[2020-06-10] MEDS: Piperacillin Sodium/Tazobactam 3.375 GM in 0.9 % Sodium Chloride 50 ML IV ×3 (01:18→12:13)
[2020-06-10] MEDS: LORazepam 2 MG/ML VIAL 1 MG IVPUSH (01:25)
[2020-06-10] MEDS: vancomycin HCL 1,000 MG in 0.9 % Sodium Chloride 250 ML 270 MG IV ×2 (01:28→08:23)
[2020-06-10 04:00] VITALS: BP 130/90; PULSE 65; RESP 20; TEMP 36.8; O2SAT 97
[2020-06-10] MEDS: 0.9 % Sodium Chloride 1,000 ML 100 ML IVCONT (06:07)
[2020-06-10 06:38] LABS: MANUAL DIFF FLAG NO
[2020-06-10 06:50] LABS: Basophils Percent Auto 0.3 % (0-2); Eosinophils Absolute Auto 0.3 X10*3/uL (0.0-0.4); Eosinophils Percent Auto 3.3 % (0-4); Hematocrit 36.1 % (42-52); Hemoglobin 12.2 g/dl (14.0-18.0); Imm Gran Abs Auto 0.04 X10*3/uL (0.00-0.03); Imm Gran Pct Auto 0.4 % (0.0-0.4); Lymphocytes Absolute Auto 1.9 X10*3/uL (1.2-4.9); Lymphocytes Percent Auto 19.3 % (20-40); Mean Corpuscular HGB Conc 33.8 g/dl (31.0-36.0); Mean Corpuscular Hemoglobin 28.6 pg (27.0-33.0); Mean Corpuscular Volume 84.7 fL (80-98); Mean Platelet Volume 11.1 fL (9.4-12.4); Monocytes Absolute Auto 0.6 X10*3/uL (0.1-1.2); Monocytes Percent Auto 5.9 % (2-11); Neutrophils Absolute Auto 6.9 X10*3/uL (2.0-8.3); Neutrophils Percent Auto 70.8 % (45-73); Platelet Count 219 X10*3/uL (160-400); Red Blood Count 4.26 X10*6/uL (4.60-5.80); Red Cell Distribution Width 12.2 % (11.0-16.0); White Blood Count 9.7 X10*3/uL (4.8-10.8)
[2020-06-10 07:13] LABS: Anion Gap 15 (12-20); Blood Urea Nitrogen 15 mg/dL (9-16); Calcium 8.4 mg/dL (8.4-10.2); Carbon Dioxide 21 mmol/L (22-29); Chloride 108 mmol/L (96-108); Creatinine Clr Calc Pharmacy 147.4; Estimated Glomerular Filt Rate > 60; Glucose Random 92 mg/dL (60-115); Potassium 3.8 mmol/l (3.3-5.1); Sodium 140 mmol/L (135-145)
[2020-06-10 08:00] VITALS: BP 153/96; PULSE 58; RESP 20; TEMP 36.4; O2SAT 97
--- NOTE | 2020-06-10 09:32 | PM.EVENT ---
Event Note Date of Service: 06/10/20 Event Note: Addiction consult note: patient with OUD currently medically admitted with pneumonia. Consult requested as patient expressing desire to restart suboxone Pt seen briefly, as he was sleepy. (received 2mg morphine about an hour ago) Chart reviewed. Full consult note to follow once patient able to participate in interview. He did state he wanted to start suboxone again. Plan: -D/C Morphine -Monitor for withdrawal sx using COWS -Plan to restart suboxone once clinically appropriate
--- NOTE | 2020-06-10 11:20 | MHC.CM.PN ---
Male 29 DX Sepsis R/T aspiration pneumonia. He does not have a PCP. The [facility] MD pamphlet was provided. The importance of having a PCP was instructed. DP home no services family transport. CM will follow. CM went to interview this Patient several times before obtaining a limited amount of infomation. He appeared to be sleeping. He was likely awake.
--- NOTE | 2020-06-10 11:54 | PC.NURSE ---
Addendum entered by Linda Trent RN 06/10/20 14:31: Pt stillrequesting to leave MD estephania aware. pt signed out [place] Original Note: Pt was sleeping all morning. Pt woke up and said he is sick as a dog and cant stop having diarrhea all over himself. Educated pt on w/d symptoms and that we are planning onstarting suboxone this evening. Pt said he can't wait that long, explained we needed to wait for the morphine to get out of his system. Pt says he wants to leave. [employer] sent to . Will continue to monitor.
[2020-06-10 12:00] VITALS: BP 148/84; PULSE 68; RESP 18; TEMP 36.9; O2SAT 97
[2020-06-10] MEDS: hydrOXYzine HCL 25 MG TABLET PO (12:13)
[2020-06-10] MEDS: ondansetron HCL 4 MG/2 ML VIAL IVPUSH (12:13)
[2020-06-10] MEDS: Enoxaparin Sodium 40 MG/0.4 ML SYRINGE SUBCUT (12:58)
[2020-06-10] MEDS: Buprenorphine/Naloxone 2/0.5mg FILM 1 FILM SUBLINGUAL (12:58)
[2020-06-10] MEDS: Buprenorphine/Naloxone 4/1 mg FILM 1 FILM SUBLINGUAL (13:35)
--- NOTE | 2020-06-10 15:09 | PM.DS ---
DS: Providers Provider Date of admission: 06/08/20 08:04 Primary care physician: Unknown Physician Consults: 06/10/20 08:21 Consult to Psychiatry Routine Consulting Provider: Harriet Croft Reason for consultation: drug abuse DS: Diagnosis Discharge Diagnosis (1) Sepsis: Status: Acute (2) Aspiration pneumonia: Status: Acute (3) Hypoxia: Status: Acute (4) Vomiting: Status: Acute (5) Atypical chest pain: Status: Acute (6) Active substance abuse: Status: Acute DS: Medications Discharge Medications Home Medications: Previous Rx's Medication Instructions Recorded amoxicillin-pot clavulanate 1 tab PO BID #14 tab 06/10/20 [Augmentin] buprenorphine 8 mg-naloxone 2 mg 1 film SUBLINGUAL .twice a day #8 06/10/20 sublingual film ea naloxone 4 mg/actuation nasal spray 4 mg INTRANASAL Q2M PRN #1 ea 06/10/20 DS: Summary Hospital Course Hospital Course: history of presenting illness Chief Complaint: weakness shortness of breath 29-year-old male with significant history of drug abuse presented with feeling feverish body ache and chest pain, patient reported he shooted herione and cocaine last night and started having body aches chest pain 1 hour after injecting, patient also reported vomiting and nausea, patient denies any sick contact, patient was also reporting shortness of breath and cough, in the ER CT chest shows bilateral patchy opacities, COVID PCR was negative patient was given 1 dose of Zosyn and inpatient admission was requested hospital course Sepsis likely secondary to aspiration pneumonia, WBC normalized blood cultures x2 showed no growth, patient treated with Vanco and Zosyn, patient decided to leave against medical advise therefore will discharge him on Augmentin , inform patient he will benefit for 1 more day of IV antibiotic due to persistent cough and mild shortness of breath and withdrawal symptoms. Active IV drug user with drug dependence , patient evaluated by Harriet Croft from Psychiatry she discontinued IV morphine and patient was supposed to be placed on Suboxone however patient decided to leave against medical advice, outpatient referrals given and Suboxone has been called in by psych Chest pain likely secondary to cocaine use and pneumonia resolved, high sensitivity troponin negative EKG shows no ischemia ACS less likely Time Spent with Patient Time attestation: Total time spent providing and/or coordinating discharge services: Physical Exam Vital Signs: Vital Signs: Last Vital Signs Temp 98.5 F 06/10/20 12:00 Pulse 68 06/10/20 12:00 Resp 18 06/10/20 12:00 BP 148/84 H 06/10/20 12:00 Pulse Ox 97 06/10/20 12:00 Body Mass Index 27.1 General patient resting comfortably in no acute distress. Neck is supple no JVD. CVS regular rate rhythm, Respiratory no respiratory distress, bibasilar rhonchii. Gastrointestinal abdomen soft, nontender, bowel sounds audible, Extremities no clubbing cyanosis or edema. Neuro nonfocal DS: Data Data Completed and Pending Labs on day of discharge: 06/08/20 03:33 ECG 12 lead EKG Stat EKG Documentation DIRECTED XR chest 1V Stat 06/08/20 03:34 Ibuprofen [Motrin] 600 mg PO ONCE ONE 06/08/20 04:15 Complete Blood Count Auto Diff Stat D Dimer Stat Hold Lt Blue - Possible Coag Stat Partial Thromboplastin Time Stat Prothrombin Time INR Stat Troponin-I High Sensitivity Stat 06/08/20 04:16 Erythrocyte Sedimentation Rate Stat Lactic Acid Stat 06/08/20 04:17 SARS-CoV2/FLU/RSV Stat 06/08/20 04:57 Basic Metabolic Panel Stat Liver Panel Stat Magnesium Stat 06/08/20 05:01 ondansetron HCL [Zofran] 4 mg IVPUSH ONCE ONE 06/08/20 05:29 Albuterol Sulfate (0.083%) [Ventolin (0.083%)] 2.5 mg INHALE ONCE ONE 06/08/20 05:31 CT chest wo con Stat 06/08/20 05:50 Piperacillin Sodium/Tazobactam [Zosyn] 3.375 gm 0.9 % Sodium Chloride [Ns] 50 ml IV ONCE 06/08/20 06:19 Add Laboratory Test Stat 06/08/20 06:37 Drug Screen Urine Stat UA CC w/rflx Micro + Cult Stat 06/08/20 06:47 CT angio chest Stat 06/08/20 07:24 Piperacillin Sodium/Tazobactam [Zosyn] 3.375 gm IV .STK-MED ONE 06/08/20 08:00 Transfer Order Routine 06/08/20 08:01 Code Status Routine 06/08/20 08:04 iohexoL 350 MG/ML [Omnipaque 350 MG/ML] 100 ml IV ONCE ONE 06/08/20 12:01 0.9 % Sodium Chloride [Ns] 1,000 ml IVCONT 100 mls/hr LORazepam [Ativan] 1 mg IVPUSH Q6H PRN Piperacillin Sodium/Tazobactam [Zosyn] 3.375 gm 0.9 % Sodium Chloride [Ns] 50 ml IV Q6H ondansetron HCL [Zofran] 4 mg IVPUSH Q6H PRN 06/08/20 12:01 Cont. Telemetry w/Vital Sign limit Q4HR IV insert/maintain Q4HR Intake and Output QSHIFTE Pulse Oximetry Q4HR Vital Signs Q4HR 06/08/20 13:00 Enoxaparin Sodium [Lovenox] 40 mg SUBCUT Q24H vancomycin HCL 1,000 mg 0.9 % Sodium Chloride [Ns] 250 ml IV Q8H 06/08/20 13:02 Piperacillin Sodium/Tazobactam [Zosyn] 3.375 gm IV .STK-MED ONE 06/08/20 13:41 vancomycin HCL 1,000 mg .ROUTE .STK-MED ONE 06/08/20 16:00 0.9 % Sodium Chloride Flush [NS Flush] 3 ml IVFLUSH QSHIFT 06/08/20 19:22 Piperacillin Sodium/Tazobactam [Zosyn] 3.375 gm IV .STK-MED ONE 06/08/20 21:23 vancomycin HCL 1,000 mg .ROUTE .STK-MED ONE 06/08/20 23:54 Piperacillin Sodium/Tazobactam [Zosyn] 3.375 gm IV .STK-MED ONE 06/09/20 04:16 vancomycin HCL 1,000 mg .ROUTE .STK-MED ONE 06/09/20 04:26 Acetaminophen [Tylenol] 650 mg PO Q6H PRN 06/09/20 06:09 Basic Metabolic Panel DAILY@0600 Complete Blood Count Auto Diff DAILY@0600 06/09/20 07:11 Piperacillin Sodium/Tazobactam [Zosyn] 3.375 gm IV .STK-MED ONE 06/09/20 10:39 Morphine Sulfate 2 mg IVPUSH Q4H PRN 06/09/20 11:53 Vancomycin Trough Stat 06/09/20 12:11 Piperacillin Sodium/Tazobactam [Zosyn] 3.375 gm IV .STK-MED ONE 06/09/20 14:26 vancomycin HCL 1,000 mg .ROUTE .STK-MED ONE 06/09/20 15:00 cloNIDine HCL [Catapres] 0.1 mg PO TID PRN 06/09/20 19:21 Piperacillin Sodium/Tazobactam [Zosyn] 3.375 gm IV .STK-MED ONE 06/09/20 20:12 Vancomycin Trough Stat 06/10/20 00:55 Piperacillin Sodium/Tazobactam [Zosyn] 3.375 gm IV .STK-MED ONE 06/10/20 00:56 vancomycin HCL 1,000 mg .ROUTE .STK-MED ONE 06/10/20 05:24 Basic Metabolic Panel DAILY@0600 Complete Blood Count Auto Diff DAILY@0600 06/10/20 06:15 Piperacillin Sodium/Tazobactam [Zosyn] 3.375 gm IV .STK-MED ONE 06/10/20 08:18 vancomycin HCL 1,000 mg .ROUTE .STK-MED ONE 06/10/20 09:00 vancomycin HCL 1,000 mg 0.9 % Sodium Chloride [Ns] 250 ml IV Q8H 06/10/20 11:01 guaiFENesin DM 100/10/5 ML [Robitussin DM 100/10/5 ML] 10 ml PO Q6H PRN hydrOXYzine HCL [Atarax] 25 mg PO Q6H PRN 06/10/20 12:06 Piperacillin Sodium/Tazobactam [Zosyn] 3.375 gm IV .STK-MED ONE 06/10/20 12:13 Buprenorphine/Naloxone 2/0.5mg [Suboxone 2/0.5 mg] 1 film SUBLINGUAL ONCE ONE 06/10/20 13:24 Buprenorphine/Naloxone 4/1 mg [Suboxone 4/1 mg] 1 film SUBLINGUAL ONCE ONE Laboratory Last Values WBC 9.7 X10*3/uL (4.8-10.8) 06/10/20 05:24 RBC 4.26 X10*6/uL (4.60-5.80) L 06/10/20 05:24 Hgb 12.2 g/dl (14.0-18.0) L 06/10/20 05:24 Hct 36.1 % (42-52) L 06/10/20 05:24 MCV 84.7 fL (80-98) 06/10/20 05:24 MCH 28.6 pg (27.0-33.0) 06/10/20 05:24 MCHC 33.8 g/dl (31.0-36.0) 06/10/20 05:24 RDW 12.2 % (11.0-16.0) 06/10/20 05:24 Plt Count 219 X10*3/uL (160-400) 06/10/20 05:24 MPV 11.1 fL (9.4-12.4) 06/10/20 05:24 Immature Gran % (Auto) 0.4 % (0.0-0.4) 06/10/20 05:24 Neut % (Auto) 70.8 % (45-73) 06/10/20 05:24 Lymph % (Auto) 19.3 % (20-40) L 06/10/20 05:24 [place] % (Auto) 5.9 % (2-11) 06/10/20 05:24 Eos % (Auto) 3.3 % (0-4) 06/10/20 05:24 Baso % (Auto) 0.3 % (0-2) 06/10/20 05:24 Lymph # (Auto) 1.9 X10*3/uL (1.2-4.9) 06/10/20 05:24 [place] # (Auto) 0.6 X10*3/uL (0.1-1.2) 06/10/20 05:24 Eos # (Auto) 0.3 X10*3/uL (0.0-0.4) 06/10/20 05:24 Baso # (Auto) 0.0 X10*3/uL (0.0-0.2) 06/10/20 05:24 Abs Immat Gran (auto) 0.04 X10*3/uL (0.00-0.03) H 06/10/20 05:24 Absolute Neuts (auto) 6.9 X10*3/uL (2.0-8.3) 06/10/20 05:24 Absolute Nucleated RBC 0.000 X10*3/uL (0.0-0.012) 06/10/20 05:24 Nucleated RBC % (auto) 0.0 /100WBC (0.0-0.2) 06/10/20 05:24 ESR 13 MM/HR (0-15) 06/08/20 04:16 PT 12.3 SEC (10.8-13.0) 06/08/20 04:15 INR 1.0 (0.9-1.1) 06/08/20 04:15 APTT 25.2 SEC (24.1-38.0) 06/08/20 04:15 D-Dimer 3593 NG/ML 06/08/20 04:15 Hold Blue Top SEE NOTE 06/08/20 04:15 Sodium 140 mmol/L (135-145) 06/10/20 05:24 Potassium 3.8 mmol/l (3.3-5.1) 06/10/20 05:24 Chloride 108 mmol/L (96-108) 06/10/20 05:24 Carbon Dioxide 21 mmol/L (22-29) L 06/10/20 05:24 Anion Gap 15 (12-20) 06/10/20 05:24 BUN 15 mg/dL (9-16) 06/10/20 05:24 Creatinine 0.77 mg/dL (0.5-1.4) 06/10/20 05:24 Estim Creat Clear Calc 147.4 06/10/20 05:24 Estimated GFR > 60 06/10/20 05:24 Random Glucose 92 mg/dL (60-115) 06/10/20 05:24 Lactic Acid 1.5 mmol/L (0.5-2.0) 06/08/20 04:16 Calcium 8.4 mg/dL (8.4-10.2) 06/10/20 05:24 Magnesium 1.7 mg/dL (1.6-2.6) 06/08/20 04:57 Total Bilirubin 0.7 mg/dL (0.0-1.0) 06/08/20 04:57 Direct Bilirubin 0.4 mg/dL (0.0-0.5) 06/08/20 04:57 AST 171 U/L (5-37) H 06/08/20 04:57 ALT 59 U/L (0-40) H 06/08/20 04:57 Alkaline Phosphatase 155 U/L (39-117) H 06/08/20 04:57 Troponin I High Sens < 3.5 ng/L (<3.5-35.0) 06/08/20 04:15 Total Protein 6.6 g/dL (6.5-8.0) 06/08/20 04:57 Albumin 3.9 g/dL (3.5-5.0) 06/08/20 04:57 Urine Color YELLOW 06/08/20 06:37 Urine Appearance CLEAR 06/08/20 06:37 Urine pH 6.0 (5.0-8.0) 06/08/20 06:37 Ur Specific [place] 1.020 (1.005-1.025) 06/08/20 06:37 Urine Protein NEG MG/DL (NEG-TRACE) 06/08/20 06:37 Urine Glucose (UA) NEG MG/DL (NEG) 06/08/20 06:37 Urine Ketones NEG MG/DL (NEG) 06/08/20 06:37 Urine Blood NEG (NEG) 06/08/20 06:37 Urine Nitrite NEG (NEG) 06/08/20 06:37 Ur Leukocyte Esterase NEG (NEG) 06/08/20 06:37 Vancomycin Trough 15.3 mcg/mL (10.0-20.0) 06/09/20 20:12 Urine Opiates Screen POSITIVE (Not Detect) H 06/08/20 06:37 Ur Barbiturates Screen Not Detected (Not Detect) 06/08/20 06:37 Ur Phencyclidine Scrn Not Detected (Not Detect) 06/08/20 06:37 Ur Amphetamines Screen Not Detected (Not Detect) 06/08/20 06:37 U Benzodiazepines Scrn POSITIVE (Not Detect) H 06/08/20 06:37 Urine Cocaine Screen POSITIVE (Not Detect) H 06/08/20 06:37 U Marijuana (THC) Screen Not Detected (Not Detect) 06/08/20 06:37 Coronavirus (PCR) NEGATIVE (Negative) 06/08/20 04:17 Influenza Type A (PCR) NEGATIVE (Negative) 06/08/20 04:17 Influenza Type B (PCR) NEGATIVE (Negative) 06/08/20 04:17 RSV RNA Qual (PCR) NEGATIVE (Negative) 06/08/20 04:17 Preliminary micro results at discharge 06/08/20 04:14 Blood Culture - Preliminary Blood - Venous No growth after 48 hours. 06/08/20 04:14 Blood Culture - Preliminary Blood - Venous No growth after 48 hours. Discharge Plan Discharge Patient Disposition: Left Against Medical Advice Referrals: Physician,Unknown [Primary Care Provider] - Discharge Medications: New amoxicillin-pot clavulanate [Augmentin] 875-125 mg tablet 1 tab PO BID Qty: 14 RF: 0 Continued buprenorphine-naloxone [Suboxone] 8-2 mg film 1 film sublingual .twice a day Qty: 8 RF: 0 Narcan 4 mg/actuation spray,non-aerosol 4 mg intranasal Q2M PRN (Reason: opioid overdose) Qty: 1 RF: 0 Discharge Orders: Discharge Order (Routine); Ordered 06/10/20 Ordered By: Albino Nesbitt Diet: regular diet Activity on Discharge: As tolerated Discharge Date/Time: 06/10/20 14:18 Care Plan Goals: strongly recommend to abstain from illicit drug use and follow-up with primary care physician Health Concerns: as above, take antibiotic as prescribed Plan of Treatment: follow-up with PCP.
--- NOTE | 2020-06-10 15:11 | MHC.CM.PN ---
DC today home no services. Patient arranged for private transportation.
== END 2020-06-10 14:18 | disposition left against medical advice (07) | DRG 720 ==
LOC: HO.ED 06:22 → HO.IMC 09:30
PROVIDERS: Admitting Provider Internal Medicine; Emergency Provider Emergency Medicine; Visit Provider Hospitalist
DX: A41.9 Sepsis, unspecified organism (principal); J69.0 Pneumonitis due to inhalation of food and vomit; F11.20 Opioid dependence, uncomplicated; F41.9 Anxiety disorder, unspecified; R09.02 Hypoxemia; Z20.828 Contact with and (suspected) exposure to other viral communicable diseases
CPT/HCPCS: 0241U; 36415; 71045; 71250; 71275; 80048; 80076; 80202; 80307; 81003; 83605; 83735; 84484; 85025; 85379; 85610; 85652; 85730; 87040; 93005; 94640; 96365; 96375; 99285; J0572; J0573; J1650; J2060; J2270; J2405; J2543; J3370; Q9967

== ENCOUNTER 2020-10-19 02:02 | Emergency (ER) | payer MEDICAID, SELFPAY ==
[2020-10-19 02:09] VITALS: BP 156/92; PULSE 70; RESP 16; TEMP 36.7; O2SAT 98; BMI 24.3
--- NOTE | 2020-10-19 03:21 | ED.DENTAL ---
HPI - Dental/Oral General Chief complaint: Dental/Oral Stated complaint: Dental pain Time Seen by Provider: 10/19/20 03:20 Source: patient Mode of arrival: ambulatory Limitations: no limitations History of Present Illness HPI Narrative: 30-year-old male with 3rd lower left molar tooth pain started about 4 hours ago, pain in the whole left side of the face, pain described as throbbing pain coming from the toes radiating to the left ear and left jaw. Related Data Previous Rx's Medication Instructions Recorded amoxicillin-pot clavulanate 1 tab PO BID #14 tab 06/10/20 [Augmentin] buprenorphine 8 mg-naloxone 2 mg 1 film SUBLINGUAL .twice a day #8 06/10/20 sublingual film ea naloxone 4 mg/actuation nasal spray 4 mg INTRANASAL Q2M PRN #1 ea 06/10/20 amoxicillin 500 mg PO Q8H #14 cap 10/19/20 Allergies Allergy/AdvReac Type Severity Reaction Status Date / Time aspirin [ASA] AdvReac Unknown STOMACH Verified 06/08/20 05:30 UPSET Review of Systems Review of Systems: All other systems are reviewed and are negative Constitutional: Reports as per HPI and Reports no additional constitutional complaints Eyes: Reports as per HPI and Reports no additional eye complaints Reports system reviewed and no additional complaints, except as documented Cardiovascular: Reports as per HPI and Reports no additional cardiovascular complaints Respiratory: Reports as per HPI and Reports no additional respiratory complaints Gastrointestinal: Reports as per HPI and Reports no additional gastrointestinal complaints Genitourinary: Reports no additional female genitourinary complaints Musculoskeletal: Reports no additional musculoskeletal complaints Skin/Breast: Reports system reviewed and no additional complaints, except as docu Psychiatric: Reports no additional psychiatric complaints Endocrine: Reports no additional endocrine complaints Hematologic/Lymphatic: Reports no additional hematologic/lymphatic complaints Allergic/Immunologic: Reports no additional allergic/immunologic complaints Reports system reviewed and no additional complaints, except as documented and Reports Abnormal speech present [facility] Past Medical History Medical History Anxiety Polysubstance abuse Surgical History No pertinent past surgical history Family History Family History Other HTN (hypertension) Social History Social History Household Members: Family Alcohol intake: never Smoking Status: Current every day smoker Tobacco Type: Cigarette Packs Per Day: 0.5 Cigarettes Per Day: 10.0 Years Smoked: 8 Second Hand Smoke Exposure: Yes Substance Use Type: Crack/Cocaine, Heroin, IV Drugs, Opiates and Painkillers Advance Directives: No Advance Directives Information Provided: No service: No Current occupational status: unemployed Physical Exam Vital Signs: Vital Signs: Last Vital Signs Temp 98.0 F 10/19/20 02:09 Pulse 70 10/19/20 02:09 Resp 16 10/19/20 02:09 BP 156/92 H 10/19/20 02:09 Pulse Ox 98 10/19/20 02:09 Body Mass Index 24.3 Vital signs have been reviewed as appeared to be correct. Blood pressure elevated. Heart rate normal. Respiration rate normal. Temperature normal. Oxygen saturation normal. Appearance: Alert. Oriented X3. No acute distress. Head: Normal external exam. Normocephalic. Atraumatic. No Javed signs noted. No raccoon eyes noted Eyes: PERRLA. EOMI. Conjunctiva and sclera normal. Eyelids normal. ENT: TM's Normal. Pharynx normal. Uvula midline. Moist mucous membranes. No trismus noted. No drooling noted. No muffled voice noted. Dental exam: Tenderness over 3rd lower left molar tooth, with slight tenderness and swelling gum around the tooth but no fluctuation or abscess. Neck: Normal inspection. Neck supple. FROM. No adenopathy. Thyroid Normal. No meningeal signs. No neck mass noted. CVS: Normal heart rate and rhythm. Heart sound normal. No murmurs noted. Pulses normal throughout. Respiratory: No respiratory distress. Painless inspiration. Breath sounds normal. No wheezes/rales/rhonchi noted. Chest nontender. No accessory muscle usage noted or decreased air movement noted. Abdomen: Soft and nontender. Bowel sounds normal in all 4 quadrants. No distention noted. No organomegaly noted. No visible injury noted. Back: No CVA tenderness. Full range of motion noted. Skin: Skin warm and dry. Normal skin color. Normal skin turgor. No rashes/lesions/lacerations noted. Extremities: No lower extremity edema. Extremities exhibit normal range of motion. Extremities nontender. Neuro: Oriented X 3. No motor deficit. No sensory deficit. Reflexes normal. Course Course Course Narrative: Assessment and plan. 30-year-old male with history of polysubstance abuse, came in with severe dental pain. Will start the patient on amoxicillin for dental infection, give the patient only 1 dose of oxycodone. Patient was instructed to follow-up with the walk-in dental clinic tomorrow morning. Discharge Plan Discharge Clinical Impression: Toothache, Dental caries Patient Disposition: Home, Self-Care Instructions: Toothache (ED) Additional Instructions: Need to follow up with a walk-in dental clinic tomorrow. Prescriptions: New amoxicillin 500 mg capsule 500 mg PO Q8H Qty: 14 RF: 0 No Action buprenorphine-naloxone [Suboxone] 8-2 mg film 1 film sublingual .twice a day Qty: 8 RF: 0 Narcan 4 mg/actuation spray,non-aerosol 4 mg intranasal Q2M PRN (Reason: opioid overdose) Qty: 1 RF: 0 amoxicillin-pot clavulanate [Augmentin] 875-125 mg tablet 1 tab PO BID Qty: 14 RF: 0 Referrals: Physician,None [Primary Care Provider] - 2 days
[2020-10-19] MEDS: Amoxicillin 500 MG CAPSULE PO (03:27)
[2020-10-19] MEDS: oxyCODONE HCl Immed Release 5 MG TABLET PO (03:27)
--- NOTE | 2020-10-19 03:29 | PC.NURSE ---
patient medicated per MD Paul orders. Medicated with amoxicillin & oxycodone 5mg PO. Plan for discharge home with follow-up encouraged at [facility] tomorrow morning. Pt reports left lower jaw dental pain, and I have a hole in my tooth . Pt agreeable to plan, awaiting discharge paperwork.
== END 2020-10-19 03:36 | disposition home or self-care (01) ==
PROVIDERS: Emergency Provider Emergency Medicine
DX: K08.89 Other specified disorders of teeth and supporting structures (principal); K02.9 Dental caries, unspecified; F11.10 Opioid abuse, uncomplicated; F14.10 Cocaine abuse, uncomplicated; F17.210 Nicotine dependence, cigarettes, uncomplicated
CPT/HCPCS: 99283; 99284

== ENCOUNTER 2021-01-17 03:19 | Emergency (ER) | payer MEDICAID, SELFPAY ==
[2021-01-17 03:58] VITALS: BP 115/64; PULSE 67; RESP 16; TEMP 36.6; O2SAT 98; BMI 22.9
--- NOTE | 2021-01-17 04:06 | ED_ITS ---
HPI - General Adult General Chief complaint: General Medical Stated complaint: numb hand Time Seen by Provider: 01/17/21 04:06 Source: patient Mode of arrival: ambulatory History of Present Illness HPI narrative: 30-year-old male with history of IVDA and last injection was approximately 2 hours ago and was injected at the left AC. Patient states that he awoke from sleep and found that his left hand was numb with some difficulty on extension at the wrist. He states he went back to sleep and when he woke up it was still unchanged. He denies any trauma, but states he may have slept on it wrong. Related Data Previous Rx's Medication Instructions Recorded amoxicillin-pot clavulanate 1 tab PO BID #14 tab 06/10/20 [Augmentin] buprenorphine 8 mg-naloxone 2 mg 1 film SUBLINGUAL .twice a day #8 06/10/20 sublingual film ea naloxone 4 mg/actuation nasal spray 4 mg INTRANASAL Q2M PRN #1 ea 06/10/20 amoxicillin 500 mg PO Q8H #14 cap 10/19/20 Allergies Allergy/AdvReac Type Severity Reaction Status Date / Time aspirin [ASA] AdvReac Unknown STOMACH Verified 06/08/20 05:30 UPSET Review of Systems Review of Systems: Pertinent positives and negatives as stated in the HPI and 10 point review of systems is otherwise negative. [facility] Past Medical History Source: nursing notes reviewed Medical History Anxiety Polysubstance abuse Surgical History No pertinent past surgical history Family History Family History Other HTN (hypertension) Social History Social History Household Members: Family Alcohol intake: current Cigarette Packs Per Day: 0.5 Cigarettes Per Day: 10.0 Years Smoked: 8 Second Hand Smoke Exposure: Yes Substance Use Type: Crack/Cocaine, Heroin, IV Drugs and Opiates Advance Directives: No service: No Current occupational status: unemployed Physical Exam Vital Signs: Vital Signs: Last Vital Signs Temp 97.9 F 01/17/21 03:58 Pulse 67 01/17/21 03:58 Resp 16 01/17/21 03:58 BP 115/64 01/17/21 03:58 Pulse Ox 98 01/17/21 03:58 Body Mass Index 22.9 VITAL SIGNS: Reviewed. GENERAL: Well developed, well nourished, in no acute distress. HEAD: Normocephalic/atraumatic, EYES: PERRLA, EOMI OROPHARYNX: no oral lesions noted, posterior pharynx clear NECK: Supple, no adenopathy LUNGS: Normal breath sounds. No adventitious sounds or accessory muscle use. SpO2<98> CARDIOVASCULAR: Regular rate and rhythm without noted murmurs ABDOMEN: Soft, non-tender, non-distended with bowel sounds. LEFT UPPER EXTREMITY: On evaluation of the shoulder there is full range of motion without difficulty and sensation is intact, on evaluation of the elbow there is full range of motion with sensation intact, on evaluation of the wrist there is flexion / weakened hand dictaphone operator / inability to extend /supination and pronation are intact, engagement of the brachial radialis is intact. SKIN: Inspection of the skin reveals no rashes NEUROLOGIC: Alert and oriented x 4. Strength and sensation to light touch were grossly intact x 4. Course Course Course Narrative: 30-year-old male with history and clinical presentation initially concerning for possible radial nerve injury, however supination / tricep engagement / brachial radialis engagement are intact which is inconsistent with an inability to extend at the wrist. There is good wrist flexion but poor hand dictaphone operator, again this is counter intuitive. Will continue to observe in the event that this is a benign neuropathy. 0500:On re-evaluation function of the hand has significantly improved with controlled extension noted at the wrist and improved hand dictaphone operator. Suspect this may have been a benign palsy secondary to sleep position. 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 Follow-up with your primary care provider in the next 2-3 days for re- evaluation. 2. Recommend using [id number] Tylenol/ ibuprofen as needed for additional symptom relief. Return to the ER for acute worsening of symptoms. Prescriptions: No Action buprenorphine-naloxone [Suboxone] 8-2 mg film 1 film sublingual .twice a day Qty: 8 RF: 0 Narcan 4 mg/actuation spray,non-aerosol 4 mg intranasal Q2M PRN (Reason: opioid overdose) Qty: 1 RF: 0 amoxicillin-pot clavulanate [Augmentin] 875-125 mg tablet 1 tab PO BID Qty: 14 RF: 0 amoxicillin 500 mg capsule 500 mg PO Q8H Qty: 14 RF: 0 Referrals: Physician,None [Primary Care Provider] - 2 days
[2021-01-17 05:34] VITALS: BP 115/65; PULSE 67; RESP 16; O2SAT 99
== END 2021-01-17 05:37 | disposition home or self-care (01) ==
PROVIDERS: Emergency Provider Student in an Organized Health Care Education/Training Program
DX: G56.32 Lesion of radial nerve, left upper limb (principal); F19.10 Other psychoactive substance abuse, uncomplicated; F17.210 Nicotine dependence, cigarettes, uncomplicated
CPT/HCPCS: 99282; 99284

== ENCOUNTER 2021-05-30 16:19 | Emergency (ER) | payer MEDICAID, SELFPAY ==
[2021-05-30 16:54] VITALS: BP 120/70; PULSE 99; RESP 18; TEMP 36.6; O2SAT 100; BMI 22.9
== END 2021-05-30 19:42 | disposition left against medical advice (07) ==
PROVIDERS: Emergency Provider Emergency Medicine
DX: K08.89 Other specified disorders of teeth and supporting structures (principal)
CPT/HCPCS: 99281; 99282

== ENCOUNTER 2021-07-09 01:34 | Emergency (ER) | payer MEDICAID, SELFPAY ==
[2021-07-09 01:45] VITALS: BP 136/86; PULSE 95; RESP 18; TEMP 36.6; O2SAT 98; BMI 22.9
[2021-07-09 01:52] VITALS: BP 128/79; PULSE 94; RESP 16; TEMP 36.6; O2SAT 97
--- NOTE | 2021-07-09 02:13 | ED.DENTAL ---
HPI - Dental/Oral General Chief complaint: Dental/Oral Stated complaint: cracked tooth while eating Time Seen by Provider: 07/09/21 02:13 Source: patient Mode of arrival: ambulatory Limitations: no limitations History of Present Illness HPI Narrative: Patient with diffuse caries chipped his right lower molar earlier today while eating anxious complaining of pain asking for antibiotics Related Data Previous Rx's Medication Instructions Recorded amoxicillin 875 mg-potassium 1 tab PO BID #14 tab 06/10/20 clavulanate 125 mg tablet (Augmentin) buprenorphine 8 mg-naloxone 2 mg 1 film SUBLINGUAL .twice a day #8 06/10/20 sublingual film (Suboxone) ea naloxone 4 mg/actuation nasal 4 mg INTRANASAL Q2M PRN #1 ea 06/10/20 spray (Narcan) amoxicillin 500 mg capsule 500 mg PO Q8H #14 cap 10/19/20 ibuprofen 600 mg tablet 600 mg PO Q6H PRN #20 tab 07/09/21 penicillin V potassium 500 mg 500 mg PO QID #40 tab 07/09/21 tablet Allergies Allergy/AdvReac Type Severity Reaction Status Date / Time aspirin [ASA] AdvReac Unknown STOMACH Verified 05/30/21 16:54 UPSET Review of Systems Review of Systems: Yes all other systems are reviewed and are negative PMFSH Past Medical History Medical History Anxiety Polysubstance abuse Surgical History No pertinent past surgical history Family History Family History Other HTN (hypertension) Social History Social History Household Members: Family Alcohol intake: current Patient Tobacco Use Status: Current everyday Tobacco user Cigarette Packs Per Day: 0.5 Cigarettes Per Day: 10.0 Years Smoked: 8 Second Hand Smoke Exposure: Yes Use of substances other than those prescribed or required for medical reasons: Refusing to respond Substance Use Type: Crack/Cocaine, Heroin, IV Drugs and Opiates Advance Directives: No service: No Current occupational status: unemployed Physical Exam Vital Signs: Vital Signs: Last Vital Signs Temp 97.9 F 07/09/21 01:52 Pulse 94 07/09/21 01:52 Resp 16 07/09/21 01:52 BP 128/79 07/09/21 01:52 Pulse Ox 97 07/09/21 01:52 BMI result Body Mass Index 22.9 Const: General: healthy appearing, alert and anxious HENMT: Teeth image: 1. Broken withhold cavity similar to that on tooth 16 and 1 and 17 no gum swelling no abscess palpable Resp: Effort & Inspection: normal respiratory effort Auscultation: clear to auscultation bilaterally Cardio: Rate: regular rate Rhythm: regular rhythm Heart sounds: S1 normal heart sound present Discharge Plan Discharge Clinical Impression: Dental caries Patient Disposition: Home, Self-Care Instructions: Toothache (ED) Additional Instructions: Take antibiotic advised follow-up with dentist Prescriptions: New penicillin V potassium 500 mg tablet 500 mg PO QID Qty: 40 RF: 0 ibuprofen 600 mg tablet 600 mg PO Q6H PRN (Reason: pain) Qty: 20 RF: 0 No Action buprenorphine-naloxone [Suboxone] 8-2 mg film 1 film sublingual .twice a day Qty: 8 RF: 0 Narcan 4 mg/actuation spray,non-aerosol 4 mg intranasal Q2M PRN (Reason: opioid overdose) Qty: 1 RF: 0 amoxicillin-pot clavulanate [Augmentin] 875-125 mg tablet 1 tab PO BID Qty: 14 RF: 0 amoxicillin 500 mg capsule 500 mg PO Q8H Qty: 14 RF: 0 Interventions: ED Discharge Assessment Last Done: 07/09/21 02:52 Discharge Date/Time: 07/09/21 02:53
== END 2021-07-09 02:53 | disposition home or self-care (01) ==
PROVIDERS: Emergency Provider Internal Medicine
DX: K02.9 Dental caries, unspecified (principal); K03.81 Cracked tooth; F17.210 Nicotine dependence, cigarettes, uncomplicated; Z71.6 Tobacco abuse counseling; Z79.899 Other long term (current) drug therapy
CPT/HCPCS: 99283; 99284

== ENCOUNTER 2021-07-11 03:19 | Emergency (ER) | payer MEDICAID, SELFPAY ==
[2021-07-11 03:27] VITALS: BP 144/85; PULSE 91; RESP 16; TEMP 37; O2SAT 100; BMI 22.9
== END 2021-07-11 04:22 | disposition left against medical advice (07) ==
PROVIDERS: Emergency Provider Emergency Medicine
DX: K08.89 Other specified disorders of teeth and supporting structures (principal); F17.200 Nicotine dependence, unspecified, uncomplicated
CPT/HCPCS: 99281; 99282

== ENCOUNTER 2021-07-12 00:58 | Emergency (ER) | payer MEDICAID, SELFPAY | END 2021-07-12 02:50 | disposition left against medical advice (07) | LOC: HO.ED 02:49 | PROVIDERS: Emergency Provider Emergency Medicine | DX: K08.89 Other specified disorders of teeth and supporting structures (principal); R00.2 Palpitations ==

== ENCOUNTER 2024-05-31 02:39 | Inpatient (IN) | payer OTHER, SELFPAY ==
--- NOTE | 2024-05-31 | ECG_ITS ---
Test Reason : CHECK QTC Blood Pressure : / mmHG Vent. Rate : 085 BPM Atrial Rate : 085 BPM P-R Int : 158 ms QRS Dur : 086 ms QT Int : 388 ms P-R-T Axes : 055 016 011 degrees QTc Int : 461 ms Normal sinus rhythm Normal ECG When compared with ECG of 08-JUN-2020 05:25, No significant change was found Referred By: Queenie Coyne Electronically Signed By:Kvng Olivares
[2024-05-31 02:41] VITALS: BP 136/83; PULSE 109; RESP 18; TEMP 36.8; O2SAT 97; BMI 31.1
[2024-05-31 03:08] VITALS: BP 125/83; PULSE 109; RESP 18; TEMP 37.2; O2SAT 97
[2024-05-31] MEDS: Ibuprofen 600 MG TABLET PO (03:19)
--- NOTE | 2024-05-31 03:32 | PC.NURSE ---
change ovr completed by this typewriter operator automatic and no evidence of contraband present, patient did have minor cuts to bilateral hands, given bandages once lab draw was completed.
[2024-05-31 03:37] LABS: Basophils Percent Auto 0.4 % (0-2); Eosinophils Percent Auto 0.1 % (0-4); Hematocrit 38.8 % (42.0-52.0); Hemoglobin 13.5 g/dl (14.0-18.0); Imm Gran Abs Auto 0.02 X10*3/uL (0.00-0.03); Imm Gran Pct Auto 0.3 % (0.0-0.4); Lymphocytes Absolute Auto 1.5 X10*3/uL (1.2-4.9); Lymphocytes Percent Auto 20.5 % (20-40); MANUAL DIFF FLAG NO; Mean Corpuscular HGB Conc 34.8 g/dl (31.0-36.0); Mean Corpuscular Hemoglobin 29.6 pg (27.0-33.0); Mean Corpuscular Volume 85.1 fL (80.0-98.0); Mean Platelet Volume 10.3 fL (9.4-12.4); Monocytes Absolute Auto 0.3 X10*3/uL (0.1-1.2); Monocytes Percent Auto 4.6 % (2-11); Neutrophils Absolute Auto 5.5 x10*3/uL (2.0-8.3); Neutrophils Percent Auto 74.1 % (45-73); Platelet Count 238 X10*3/uL (160-400); Red Blood Count 4.56 X10*6/uL (4.60-5.80); Red Cell Distribution Width 12.1 % (11.0-16.0); White Blood Count 7.4 X10*3/uL (4.8-10.8)
[2024-05-31 03:52] LABS: Amphetamine Screen Urine Not Detected (Not Detect); Barbiturates, Urine Not Detected (Not Detect); Benzodiazepines Screen Urine Not Detected (Not Detect); Buprenorphine Scr Positive (Not Detect); Cannabinoid Screen Urine Not Detected (Not Detect); Cocaine Screen Urine POSITIVE (Not Detect); Fentanyl, urine POSITIVE (Not Detect); Methadone Screen, Urine Not Detected (Not Detect); Opiate Screen Urine Not Detected (Not Detect); Oxycodone Screen Urine Not Detected (Not Detect); Phencyclidine Screen Urine Not Detected (Not Detect)
[2024-05-31 03:57] LABS: Anion Gap 19 (12-20)
[2024-05-31 03:58] LABS: Alanine Aminotransferase 23 U/L (0-40); Albumin Level 4.5 g/dL (3.5-5.0); Alkaline Phosphatase 84 U/L (39-117); Aspartate Amino Transferase 61 U/L (5-37); Bilirubin Total 0.9 mg/dL (0.0-1.0); Blood Urea Nitrogen 23 mg/dL (9-16); Calcium 9.3 mg/dL (8.4-10.2); Carbon Dioxide 24 mmol/L (22-29); Chloride 103 mmol/L (96-108); Creatinine Clr Calc Pharmacy 128.4; Estimated Glomerular Filt Rate > 60; Ethanol 18 mg/dL; Glucose Random 76 mg/dL (60-115); Potassium 4.1 mmol/L (3.3-5.1); Sodium 142 mmol/L (135-145); Total Protein 7.5 g/dL (6.5-8.0)
[2024-05-31 03:58] LABS: Acetaminophen LAB < 3 mcg/mL (<30); Salicylate < 5.0 mg/dL (15-30)
--- NOTE | 2024-05-31 06:43 | ED_ITS ---
HPI - General Adult General Chief complaint: Psychiatric Symptoms Stated complaint: missing meds/not thinking straight/took heroin Time Seen by Provider: 05/31/24 06:42 Source: patient Mode of arrival: ambulatory Limitations: no limitations History of Present Illness ED Provider: Queenie Coyne PA-C HPI narrative: Patient is a 33 year old assigned male at with a history of opiate abuse presenting to the emergency department today after a suicide attempt. Patient states that he has been more depressed lately and attempted to kill himself by overdosing on heroin. Patient denies any dizziness, lightheadedness, abdominal pain, nausea, vomiting, fever, chills, blurry vision, double vision, loss of vision, chest pain, difficulty breathing, shortness of breath, back pain, night sweats, pain with urination, increased urinary frequency, increased urinary urgency, blood in his urine or stool, syncope or a near syncopal episode, recent trauma or falls, bowel incontinence, bladder incontinence, or any other complaints at this time. Relieving factors: none Exacerbating factors: none Associated symptoms: denies other symptoms Treatments prior to arrival: none Related Data Home Medications ?Medication ?Instructions ?Recorded ?Confirmed No Known Home Meds 05/31/24 05/31/24 Allergies Allergy/AdvReac Type Severity Reaction Status Date / Time fish derived [fish] Allergy Itching Verified 05/31/24 02:45 aspirin [ASA] AdvReac Unknown STOMACH Verified 05/31/24 02:45 UPSET Review of Systems 2 Constitutional: Constitutional: Reports no additional constitutional complaints, Denies chills, Denies fever(s) and Denies night sweats Eyes: Eyes: Reports no additional eye complaints, Denies blurry vision, Denies change in vision, Denies diplopia, Denies eye discharge, Denies loss of vision and Denies eye pain ENT: Denies dizziness Cardiovascular: Cardiovascular: Reports no additional cardiovascular complaints, Denies chest pain, Denies lightheadedness, Denies Loss of Consciousness and Denies dyspnea Respiratory: Respiratory: Reports no additional respiratory complaints and Denies dyspnea Gastrointestinal: Gastrointestinal: Reports no additional gastrointestinal complaints, Denies abdominal pain, Denies melena, Denies hematochezia, Denies change in bowel habits and Denies change in stool character Genitourinary: Genitourinary: Reports no additional male genitourinary complaints, Denies hematuria, Denies oliguria, Denies difficulty urinating, Denies dysuria, Denies urinary frequency, Denies urinary hesitancy, Denies urinary incontinence and Denies urinary urgency Musculoskeletal: Musculoskeletal: Reports no additional musculoskeletal complaints, Denies numbness and Denies tingling Neurologic: Denies dizziness, Denies loss of vision, Denies numbness and Denies tingling Psychiatric: Psychiatric: Denies homicidal ideation and Reports suicidal ideation Endocrine: Endocrine: Reports no additional endocrine complaints Hematologic/Lymphatic: Hematologic/Lymphatic: Reports no additional hematologic/lymphatic complaints Allergic/Immunologic: Allergic/Immunologic: Reports no additional allergic/immunologic complaints [facility], [facility] Past Medical History Attestation statement: The following information was validated with the patient. Source: old records reviewed and nursing notes reviewed Medical History Anxiety Polysubstance abuse Surgical History No pertinent past surgical history Family History Family History Other HTN (hypertension) Social History Social History Household Members: Family Alcohol intake: current Comment: sleeping Patient Tobacco Use Status: Current everyday Tobacco user Cigarette Packs Per Day: 0.5 Cigarettes Per Day: 10.0 Years Smoked: 8 Second Hand Smoke Exposure: Yes Substance Use Type: Crack/Cocaine, Heroin, IV Drugs and Opiates Advance Directives: No Advance Directives Information Provided: Yes Do you have a plan to hurt others: No Plan service: No Current occupational status: unemployed Physical Exam ED Vital Signs: Vital Signs - 24 hr 05/31/24 02:41 05/31/24 03:08 Temperature 98.3 F 99 F Pulse Rate 109 H 109 H Respiratory Rate 18 18 Blood Pressure 136/83 125/83 Pulse Oximetry 97 97 Oxygen Delivery Method Room Air Room Air BMI result Body Mass Index 31.1 Const General: cooperative, no acute distress, alert and awake Nutritional Appearance: well nourished Orientation/consciousness: patient oriented x3 Limitations: no limitations HENMT Head: Yes normal to inspection and Yes atraumatic Ears: hearing grossly normal bilaterally and external ears normal General nose exam: Normal external nose present, no nasal discharge noted and no epistaxis Face and sinus: Yes normal facial exam, No abrasion and No laceration Mouth: Normal oral and palatal mucosa present, no drooling and no muffled voice Eyes General: appearance normal, both eyes and all related structures Periorbital: periorbital findings normal Eyelids: Yes eyelids normal Conjunctivae: conjunctivae normal Pupils: Equal, round and reactive pupils present EOM: EOMs intact bilaterally Neck Neck: Yes normal visual inspection, Yes full ROM and Yes no lymphadenopathy Chest Chest palpation & inspection: normal inspection of the chest Resp Effort & Inspection: normal respiratory effort and able to speak in complete sentences GI Inspection: Yes normal to inspection Neuro General: patient oriented x3 and moves all extremities Cranial nerves: Yes Equal, round and reactive pupils present Cognition (Neuro): normal cognition Extrem General: Yes normal to inspection, Yes full ROM and Yes capillary refill normal Psych Appearance: grossly normal Mental Status: mental status grossly normal Affect: Sad affect present Attitude: Guarded attititude/behavior present Thought process: Normal thought process present Thought content: Suicidality present Medications Administered Discontinued Medications Generic Name Dose Route Start Last Admin Trade Name Freq PRN Reason Stop Dose Admin Ibuprofen 600 mg 05/31/24 03:12 05/31/24 03:19 Ibuprofen 600 Mg Tablet PO 05/31/24 03:13 600 mg ONCE ONE Administration Medical Decision Making Medical Decision Making [facility] Narrative: Patient is a 33 year old assigned male/ at with a history of opiate abuse presenting to the emergency department today after a suicide attempt. Patient's physical exam was as noted in the physical exam portion of this note. Patient's blood work was unremarkable. I explained my physical exam findings as well as all test results to the patient. I answered all questions asked by the patient. Patient awaiting CARE team evaluation. Differential Diagnosis Differential Diagnoses: The differential diagnosis associated with the presentation includes Suicidal ideation Opiate abuse Opiate use Admission/Observation Consideration of admission/observation: Escalation of care including admission/observation considered Patient's disposition will be determined after CARE Team evaluation. Lab Data [facility] Lab Attestation statement: I reviewed the patient's lab results. My interpretation of these results are in the [facility] Rationale portion of this note. 05/31/24 03:30 05/31/24 03:30 Labs: Lab Results 05/31/24 05/31/24 Range/Units 03:30 03:31 WBC 7.4 (4.8-10.8) X10*3/uL RBC 4.56 L (4.60-5.80) X10*6/uL Hgb 13.5 L (14.0-18.0) g/dl Hct 38.8 L (42.0-52.0) % MCV 85.1 (80.0-98.0) fL MCH 29.6 (27.0-33.0) pg MCHC 34.8 (31.0-36.0) g/dl RDW 12.1 (11.0-16.0) % Plt Count 238 (160-400) X10*3/uL MPV 10.3 (9.4-12.4) fL Immature Gran % (Auto) 0.3 (0.0-0.4) % Neut % (Auto) 74.1 H (45-73) % Lymph % (Auto) 20.5 (20-40) % [place] % (Auto) 4.6 (2-11) % Eos % (Auto) 0.1 (0-4) % Baso % (Auto) 0.4 (0-2) % Lymph # (Auto) 1.5 (1.2-4.9) X10*3/uL [place] # (Auto) 0.3 (0.1-1.2) X10*3/uL Eos # (Auto) 0.0 (0.0-0.4) X10*3/uL Baso # (Auto) 0.0 (0.0-0.2) X10*3/uL Abs Immat Gran (auto) 0.02 (0.00-0.03) X10*3/uL Absolute Neuts (auto) 5.5 (2.0-8.3) x10*3/uL Absolute Nucleated RBC 0.000 (0.0-0.012) X10*3/uL Nucleated RBC % (auto) 0.0 (0.0-0.2) /100WBC Sodium 142 (135-145) mmol/L Potassium 4.1 (3.3-5.1) mmol/L Chloride 103 (96-108) mmol/L Carbon Dioxide 24 (22-29) mmol/L Anion Gap 19 (12-20) BUN 23 H (9-16) mg/dL Creatinine 0.97 (0.5-1.4) mg/dL Estim Creat Clear Calc 128.4 Estimated GFR > 60 Random Glucose 76 (60-115) mg/dL Calcium 9.3 D (8.4-10.2) mg/dL Total Bilirubin 0.9 (0.0-1.0) mg/dL AST 61 H (5-37) U/L ALT 23 (0-40) U/L Alkaline Phosphatase 84 (39-117) U/L Total Protein 7.5 (6.5-8.0) g/dL Albumin 4.5 (3.5-5.0) g/dL Salicylates < 5.0 L (15-30) mg/dL Urine Opiates Screen Not Detected (Not Detect) Ur Buprenorphine Scrn Positive H (Not Detect) ng/mL Ur Oxycodone Screen Not Detected (Not Detect) ng/mL Urine Methadone Screen Not Detected (Not Detect) ng/mL Urine Fentanyl Screen POSITIVE H (Not Detect) Acetaminophen < 3 (<30) mcg/mL Ur Barbiturates Screen Not Detected (Not Detect) Ur Phencyclidine Scrn Not Detected (Not Detect) Ur Amphetamines Screen Not Detected (Not Detect) U Benzodiazepines Scrn Not Detected (Not Detect) Urine Cocaine Screen POSITIVE H (Not Detect) U Marijuana (THC) Screen Not Detected (Not Detect) Ethyl Alcohol 18 mg/dL Discharge Plan Discharge Clinical Impression: Suicidal ideation, Suicide attempt Patient Disposition: Still a Patient Prescriptions: No Action No Known Home Meds Interventions: Basye-Suicide Risk Severity Scale Last Done: 05/31/24 03:33 Print Language: Lebanese
--- NOTE | 2024-05-31 08:21 | MHC.CARE ---
Pt will be an inpatient bedsearch
[2024-05-31 10:08] LABS: Appearance Urine Clear; Color Urine Yellow; Glucose Urine UA Negative (Negative); Leukocyte Esterase Urine Negative (Negative); Nitrite Urine Negative (Negative); PH 5.5 (5.0-9.0); Specific Gravity - Urine 1.025 (1.005-1.025); Urine Blood Negative (Negative); Urine Ketones 40 mg/dL (Negative); Urine Protein Negative (Neg-Trace)
[2024-05-31 15:50] VITALS: BP 135/81; PULSE 90; RESP 16; TEMP 36.6; O2SAT 100; BMI 30.6
--- NOTE | 2024-05-31 16:37 | PC.ADMIT ---
Addendum entered and electronically signed by Karissa Vail RN 05/31/24 19:32: Arrived on unit at 1545. Original Note: This 33 y.o. male was referred by [facility] Care Team with Dx of Unspecified depressive d/o, Opioid use d/o, severe. Arrived on unit at 1345 and placed on 15 min safety checks. Section 12A upon admission to unit, Conditional Voluntary after meeting with Ana Colon, prescriber. Skin integrity check/jacquard loom card changer done upon admission with 2 staff present. Pt self presented to [facility] ED with c/o recent relapse, worsening depression, anxiety, recent suicide attempt via overdose. Reports he was at [facility] for 12 days, [facility] afterwards for 35 days and completed program on 05/29/24. States his psych meds were d/c'd while there. States he relapsed on Cocaine/Fentanyl 05/30/24 and then tried to overdose. Tox screen positive Buprenorphine, Fentanyl, Cocaine, ETOH 18. Reports last etoh use 05/30/24, 1st time drinking since Aug 2023. Reports drinking 7 nips of Smirnoff. Goal is to feel normal again and get back on meds. States his roommate at [facility] gave him 1 Sublocade, and does not know why he took it. Reports he is homeless until brother gets out of snf on 06/06/24. States he can stay with brother on his release. Limping gait noted. States he has been speed walking since discharge from [facility] due to being homeless and being on Cocaine. Multiple needle damico noted bilateral hands due to multiple attempts to inject-per pt. Rates depression #3, anxiety #6 on scale 1-10(10 worse). Denies SI/HI, denies AH/VH. States he is happy he survived suicide attempt. Meds verified while in ED, admission orders received from Ana Colon. Pleasant, cooperative during admission process. Restlessness noted, denies craving substances or withdrawal symptoms.
[2024-05-31] MEDS: Acetaminophen 325 MG TABLET 650 MG PO ×2 (17:08→23:08)
[2024-05-31 19:52] VITALS: BP 124/66; PULSE 71; RESP 18; TEMP 36.9; O2SAT 98
[2024-05-31] MEDS: Nicotine Polacrilex 2 MG GUM 4 MG BUCCAL (22:02)
[2024-05-31] MEDS: hydrOXYzine HCL 25 MG TABLET PO (23:08)
[2024-05-31] MEDS: traZODone HCL 50 MG TABLET PO (23:09)
[2024-06-01 07:00] VITALS: BMI 30.9
[2024-06-01 08:00] VITALS: BP 101/59; PULSE 72; RESP 18; TEMP 36.9; O2SAT 95
[2024-06-01] MEDS: Acetaminophen 325 MG TABLET 650 MG PO (08:29)
[2024-06-01] MEDS: Nicotine Polacrilex 2 MG GUM 4 MG BUCCAL ×3 (08:29→19:14)
--- NOTE | 2024-06-01 08:51 | P.HPPS_ITS ---
HPI Date of Service: 06/01/24 Chief Complaint: SI Sources of Information: patient interviewed, chart reviewed and crisis/core team assessment reviewed HPI Subjective Notes: Steven Warning (given and shows understanding) and Conditional Voluntary Narrative: Mr. Linares is a 33 year-old male with hx of opioid use disorder, cocaine use disorder, mood disorder who self presented reporting increase depression, suicidal ideation. He reports recent suicide attempts via OD on substances. He reports day prior to presenting to ED he attempted to use 10 bags of heroin but couldn't find a vein. He decided to seek help. In the ED, his utox is positive for fentanyl, suboxone (he used to be on suboxone, not anymore and declines restating this medication), cocaine. Labs include: cbc with normocytic anemia, CMP with no electrolyte abnormality. BUN slightly elevated with normal creatinine. AST slightly elevated, ALT wnl. On the unit, pt endorses depressed mood, anxious mood. He denies SI/HI. He denies hx of visual or auditory hallucinations. He identified multiple stressors including lack of stable housing, relapsed on opioid and cocaine. He reports he was recently at detox and was taken off wellbutrin and seroquel and thinks his mood was off after this. In terms of substance use, pt reports he has been off sublocade since March. He denies increased use of opioids. He reports he had only one time use. He declines further referrals for substance use disorder. He reports he plans to go to his brother's house and stay with him. Past Psychiatric History: Inpt: last admission about 5 years ago OP: none Past trials: seroquel, wellbutrin, clonidine ( made me feel weird clarifies that he had dizziness and lightheadedness). Medical Evaluation Reviewed: Yes [facility] Medical History Anxiety Polysubstance abuse Surgical History No pertinent past surgical history Family History: none Social History: Pt currently not working. He lack stable housing. Substance History: He reports using opioid for several years on and off. He reports less use in the past 4-5 years cocaine: reports sporadic use, but does not quantify Trauma History: not disclosed. Diagnostics Vital Signs (24Hr): Vital Signs - 24 hr 05/31/24 15:50 05/31/24 19:52 Temperature 97.9 F 98.5 F Pulse Rate 90 71 Respiratory Rate 16 18 Blood Pressure 135/81 124/66 Pulse Oximetry 100 98 Oxygen Delivery Method Room Air Room Air BMI result Body Mass Index 30.6 Labs 05/31/24 03:30 05/31/24 03:30 Labs: Laboratory Results - last 48 hr 05/31/24 05/31/24 03:30 03:31 WBC 7.4 RBC 4.56 L Hgb 13.5 L Hct 38.8 L MCV 85.1 MCH 29.6 MCHC 34.8 RDW 12.1 Plt Count 238 MPV 10.3 Immature Gran % (Auto) 0.3 Neut % (Auto) 74.1 H Lymph % (Auto) 20.5 [place] % (Auto) 4.6 Eos % (Auto) 0.1 Baso % (Auto) 0.4 Lymph # (Auto) 1.5 [place] # (Auto) 0.3 Eos # (Auto) 0.0 Baso # (Auto) 0.0 Abs Immat Gran (auto) 0.02 Absolute Neuts (auto) 5.5 Absolute Nucleated RBC 0.000 Nucleated RBC % (auto) 0.0 Sodium 142 Potassium 4.1 Chloride 103 Carbon Dioxide 24 Anion Gap 19 BUN 23 H Creatinine 0.97 Estim Creat Clear Calc 128.4 Estimated GFR > 60 Random Glucose 76 Calcium 9.3 D Total Bilirubin 0.9 AST 61 H ALT 23 Alkaline Phosphatase 84 Total Protein 7.5 Albumin 4.5 Urine Color Yellow Urine Appearance Clear Urine pH 5.5 Ur Specific [place] 1.025 Urine Protein Negative Urine Glucose (UA) Negative Urine Ketones 40 Urine Blood Negative Urine Nitrite Negative Ur Leukocyte Esterase Negative Salicylates < 5.0 L Urine Opiates Screen Not Detected Ur Buprenorphine Scrn Positive H Ur Oxycodone Screen Not Detected Urine Methadone Screen Not Detected Urine Fentanyl Screen POSITIVE H Acetaminophen < 3 Ur Barbiturates Screen Not Detected Ur Phencyclidine Scrn Not Detected Ur Amphetamines Screen Not Detected U Benzodiazepines Scrn Not Detected Urine Cocaine Screen POSITIVE H U Marijuana (THC) Screen Not Detected Ethyl Alcohol 18 Meds/Allergies Meds Home Medications ?Medication ?Instructions ?Recorded ?Confirmed ?Type No Known Home Meds 05/31/24 05/31/24 History Allergies Allergies Allergy/AdvReac Type Severity Reaction Status Date / Time fish derived [fish] Allergy Itching Verified 05/31/24 02:45 aspirin [ASA] AdvReac Unknown STOMACH Verified 05/31/24 02:45 UPSET Mental Status Exam Mental Status Exam Narrative: Appearance: wearing hospital gown, fair hygiene, in NAD Behavior: cooperative Psychomotor: no agitation or retardation noted Speech: clear, normal rate/rhythm/volume, spontaneous TP: mostly linear TC: wanting help Mood: depressed' Affect: congruent SI: passive HI: none VH/AH: no signs Delusions: none Insight/judgment: fair x 2 Memory/cog: alert, oriented x 3.grossly intact to conversational testing. Assessment & Plan Assessment & Plan (1) Mood disorder: Status: Acute Code(s): F39 - Unspecified mood [affective] disorder (2) Opioid use disorder, moderate, dependence: Status: Acute Code(s): F11.20 - Opioid dependence, uncomplicated (3) Cocaine use disorder, moderate, dependence: Status: Acute Code(s): F14.20 - Cocaine dependence, uncomplicated (4) Unsheltered homelessness: Status: Acute Code(s): Z59.02 - Unsheltered homelessness Plan Mr. Linares is a 33 year-old male with hx of opioid and cocaine use disorder who self presented to [facility] ED reporting increase depression, suicidal ideation with recent SA via OD on heroin. Utox positive for fentanyl, cocaine and suboxone. He declines referrals for substance use disorder. He does not want to restart MAT for opioid use. He reports overall his substance use has decreased and he is not interested in substance use treatment. He does report wanting to go back on wellbutrin and seroquel. We discussed risks, benefis and alternative treatment options. Physically he reports muscle pain on both legs as he reports he walked for several miles prior to coming to hospital. Can use tylenol and naproxen for now. PLAN 1. Admit to M3, cv, 15 minutes check. 2. start wellbutrin 150mg po daily 3. seroquel 50mg TID 4. aftercare planning. Patient educated on: diagnosis, medication risk/benefits and substance abuse Reason for continued inpatient stay Substantial Risk for: harm to self Statement Statement: I have reviewed the history and physical and performed a pertinent examination on my patient. No changes have occurred unless specified. If the History and Physical was not performed prior to admission, the Hospitalist's service will be consulted for completing the admission physical. Time Spent With Patient Time: Total time managing care of this patient today ____ minutes.
[2024-06-01 09:27] LABS: Estimated Average Glucose 100 mg/dL; Hemoglobin A1C 113.4599 umol/L; Hemoglobin A1c % 5.1 % (<6.0); Total Hemoglobin (HGBA1C) 3477.7083 umol/L
[2024-06-01 09:47] LABS: Albumin Level 4.1 g/dL (3.5-5.0); Alkaline Phosphatase 79 U/L (39-117); Anion Gap 14 (12-20); Aspartate Amino Transferase 46 U/L (5-37); Bilirubin Total 0.6 mg/dL (0.0-1.0); Blood Urea Nitrogen 14 mg/dL (9-16); Calcium 9.1 mg/dL (8.4-10.2); Carbon Dioxide 26 mmol/L (22-29); Chloride 102 mmol/L (96-108); Cholesterol 144 mg/dL (<200); Creatinine Clr Calc Pharmacy 143.8; Estimated Glomerular Filt Rate > 60; Glucose Fasting 173 mg/dL (60-99); HDL Cholesterol 45 mg/dL (>40); LDL Cholesterol Calculated 84 mg/dL (<100); Potassium 3.9 mmol/L (3.3-5.1); Sodium 138 mmol/L (135-145); Triglycerides 76 mg/dL (<150)
[2024-06-01 09:51] LABS: Alanine Aminotransferase 32 U/L (0-40)
[2024-06-01 10:04] LABS: Thyroid Stimulating Hormone 2.26 uIU/mL (0.32-4.0)
[2024-06-01 10:24] LABS: Vitamin B12 349 pg/mL (200-900)
[2024-06-01] MEDS: QUEtiapine Fumarate 50 MG TABLET PO ×2 (10:32→20:21)
[2024-06-01] MEDS: buPROPion HCl XL 150 MG TAB.ER.24H PO (10:32)
[2024-06-01] MEDS: NaPROXEN 500 MG TABLET PO (10:32)
[2024-06-01 12:33] LABS: Iron 70 mcg/dL (45-160); Percent Iron Saturation 36 % (15-50); Total Iron Binding Capacity 197 mcg/dL (228-428); Unsaturated Iron Binding 127 ug/dL
[2024-06-01 19:19] VITALS: BP 114/73; PULSE 88; RESP 16; TEMP 36.4
[2024-06-02 07:40] VITALS: BP 122/62; PULSE 66; RESP 14; TEMP 36.9; O2SAT 96
[2024-06-02] MEDS: QUEtiapine Fumarate 50 MG TABLET PO ×2 (08:49→21:05)
[2024-06-02] MEDS: Acetaminophen 325 MG TABLET 650 MG PO (08:50)
[2024-06-02] MEDS: buPROPion HCl XL 150 MG TAB.ER.24H PO (08:51)
--- NOTE | 2024-06-02 13:25 | P.PNPSI_ITS ---
Subjective Subjective Date of Service: 06/02/24 Reason For Visit: SI Subjective Notes: Conditional Voluntary and 3 Day Interim History: Pt reports that he is feeling much better. He denies SI/HI. He reports he hopes to be discharge soon. He declines referrals for substance use disorder. He did agree to referral for psych appointment to continue wellbutrin and seroquel. He denied any issues with current medication, but later told RN seroquel may be too sedating. will stop day time doses. No behavioral concerns. Review of Systems Review of Systems Pt denies SOB, no GI concerns including constipation or abdominal pain. No chest pain. No changes in vision. Leg pain seems muscular but will keep eye for DVT. Constitutional: Reports no additional constitutional complaints, Denies chills, Denies fever(s) and Denies night sweats Eyes: Reports no additional eye complaints, Denies blurry vision, Denies change in vision, Denies diplopia, Denies eye discharge, Denies loss of vision and Denies eye pain Denies dizziness Cardiovascular: Reports no additional cardiovascular complaints, Denies chest pain, Denies lightheadedness, Denies Loss of Consciousness and Denies dyspnea Respiratory: Reports no additional respiratory complaints and Denies dyspnea Gastrointestinal: Reports no additional gastrointestinal complaints, Denies abdominal pain, Denies melena, Denies hematochezia, Denies change in bowel habits and Denies change in stool character Genitourinary: Reports no additional male genitourinary complaints, Denies hematuria, Denies oliguria, Denies difficulty urinating, Denies dysuria, Denies urinary frequency, Denies urinary hesitancy, Denies urinary incontinence and Denies urinary urgency Musculoskeletal: Reports no additional musculoskeletal complaints, Denies numbness and Denies tingling Denies dizziness, Denies loss of vision, Denies numbness and Denies tingling Psychiatric: Denies homicidal ideation and Reports suicidal ideation Endocrine: Reports no additional endocrine complaints Hematologic/Lymphatic: Reports no additional hematologic/lymphatic complaints Allergic/Immunologic: Reports no additional allergic/immunologic complaints Mental Status Exam Mental Status Exam Narrative: Appearance: wearing hospital gown, fair hygiene, in NAD Behavior: cooperative Psychomotor: no agitation or retardation noted Speech: clear, normal rate/rhythm/volume, spontaneous TP: mostly linear TC: wanting to leave Mood: better' Affect: congruent SI: none HI: none VH/AH: no signs Delusions: none Insight/judgment: fair x 2 Memory/cog: alert, oriented x 3.grossly intact to conversational testing. Diagnostics Vital Signs (24Hr): Vital Signs - 24 hr 06/01/24 19:19 06/02/24 07:40 Temperature 97.5 F 98.5 F Pulse Rate 88 66 Respiratory Rate 16 14 Blood Pressure 114/73 122/62 Pulse Oximetry 96 Oxygen Delivery Method Room Air BMI result Body Mass Index 30.9 Labs 05/31/24 03:30 06/01/24 08:40 Labs: Laboratory Results - last 48 hr 06/01/24 06/01/24 08:40 11:59 Sodium 138 Potassium 3.9 Chloride 102 Carbon Dioxide 26 Anion Gap 14 BUN 14 Creatinine 0.86 Estim Creat Clear Calc 143.8 Estimated GFR > 60 Fasting Glucose 173 H Estimat Average Glucose 100 Hemoglobin A1c % 5.1 Calcium 9.1 Iron 70 TIBC 197 L % Saturation 36 Unsat Iron Binding 127 Total Bilirubin 0.6 AST 46 H ALT 32 Alkaline Phosphatase 79 Total Protein 7.0 Albumin 4.1 Triglycerides 76 Cholesterol 144 LDL Cholesterol, Calc 84 HDL Cholesterol 45 Vitamin B12 349 TSH 2.26 Medications Medications Current Medications Acetaminophen (Acetaminophen 325 Mg Tablet) 650 mg PO Q6H PRN PRN Reason: Headache/Pain Mild Scale (1-3) Last Admin: 06/02/24 08:50 Dose: 650 mg Al Hydroxide/Mg Hydroxide (Magnesium Hydrox/Alum Hydrox 30 Ml Oral.Susp) 30 ml PO Q6H PRN PRN Reason: Heartburn/Nausea Bupropion HCl (Bupropion Hcl Xl 150 Mg Tab.Er.24h) 150 mg PO DAILY MAIRA Last Admin: 06/02/24 08:51 Dose: 150 mg Hydroxyzine HCl (Hydroxyzine Hcl 25 Mg Tablet) 25 mg PO Q6H PRN PRN Reason: Anxiety Last Admin: 05/31/24 23:08 Dose: 25 mg Magnesium Hydroxide (Milk Of Magnesia 30 Ml Oral.Susp) 30 ml PO DAILY PRN PRN Reason: Constipation Naproxen (Naproxen 500 Mg Tablet) 500 mg PO BID PRN PRN Reason: Pain, Moderate(Pain Scale 4-6) Last Admin: 06/01/24 10:32 Dose: 500 mg Nicotine Polacrilex (Nicotine Polacrilex 2 Mg Gum) 4 mg BUCCAL Q2H PRN PRN Reason: Nicotine Cravings Last Admin: 06/01/24 19:14 Dose: 4 mg Quetiapine Fumarate (Quetiapine Fumarate 50 Mg Tablet) 50 mg PO TID MAIRA Last Admin: 06/02/24 08:49 Dose: 50 mg Trazodone HCl (Trazodone Hcl 50 Mg Tablet) 50 mg PO BEDTIME MRX1 PRN PRN Reason: Insomnia Last Admin: 05/31/24 23:09 Dose: 50 mg Allergies Allergies Allergy/AdvReac Type Severity Reaction Status Date / Time fish derived [fish] Allergy Itching Verified 05/31/24 02:45 aspirin [ASA] AdvReac Unknown STOMACH Verified 05/31/24 02:45 UPSET Assessment & Plan Assessment & Plan (1) Mood disorder: Status: Acute Code(s): F39 - Unspecified mood [affective] disorder (2) Opioid use disorder, moderate, dependence: Status: Acute Code(s): F11.20 - Opioid dependence, uncomplicated (3) Cocaine use disorder, moderate, dependence: Status: Acute Code(s): F14.20 - Cocaine dependence, uncomplicated (4) Unsheltered homelessness: Status: Acute Code(s): Z59.02 - Unsheltered homelessness Plan Mr. Linares is a 33 year-old male with hx of opioid and cocaine use disorder who self presented to [facility] [place] [facility] reporting increase depression, suicidal ideation with recent SA via OD on heroin. Utox positive for fentanyl, cocaine and suboxone. He declines referrals for substance use disorder. He does not want to restart MAT for opioid use. He reports overall his substance use has decreased and he is not interested in substance use treatment. He does report wanting to go back on wellbutrin and seroquel. We discussed risks, benefis and alternative treatment options. Physically he reports muscle pain on both legs as he reports he walked for several miles prior to coming to hospital. Can use tylenol and naproxen for now. PLAN 06/02 continue tx. Reason for continued inpatient stay Substantial Risk for: stable for discharge Time Spent With Patient Time: Total time managing care of this patient today ____ minutes.
[2024-06-02] MEDS: Nicotine Polacrilex 2 MG GUM 4 MG BUCCAL ×2 (17:15→20:04)
[2024-06-02 20:00] VITALS: BP 132/67; PULSE 97; RESP 16; TEMP 36.6; O2SAT 98
[2024-06-02] MEDS: NaPROXEN 500 MG TABLET PO (21:06)
[2024-06-03 07:30] VITALS: BP 114/72; PULSE 65; RESP 14; TEMP 36.4; O2SAT 97
--- NOTE | 2024-06-03 09:07 | HO.PSYCHPN ---
Subjective Subjective Date of Service: 06/03/24 Reason For Visit: SI Subjective Notes: Conditional Voluntary and 3 Day Interim History: The nursing staff reported the patient signed a 3 day notice yesterday. He reports anxiety. He has not attend to any groups and he does not like Seroquel in the evening. He was seen watching TV no agitation slept 7 hours. On interview the patient denies new symptoms, denies side effects Mental Status Exam Mental Status Exam Patient Appearance: Well Grooomed and Appropriate Patient Orientation: Person and Situation Level of Consciousness: Awake and Appropriate Patient Behavior: Appropriate Mood Description: Calm Affect Description: Constricted Patient Cognition Impaired: Yes Ability to Follow Directions: Good Speech Pattern: Clear Hallucinations: None Delusions: Not Present Thought Content: positive for [place] Judgement: Fair Diagnostics Vital Signs (24Hr): Vital Signs - 24 hr 06/02/24 20:00 06/03/24 07:30 Temperature 98 F 97.6 F Pulse Rate 97 65 Respiratory Rate 16 14 Blood Pressure 132/67 114/72 Pulse Oximetry 98 97 Oxygen Delivery Method Room Air BMI result Body Mass Index 30.9 Labs 05/31/24 03:30 06/01/24 08:40 Labs: Laboratory Results - last 48 hr 06/01/24 06/01/24 08:40 11:59 Sodium 138 Potassium 3.9 Chloride 102 Carbon Dioxide 26 Anion Gap 14 BUN 14 Creatinine 0.86 Estim Creat Clear Calc 143.8 Estimated GFR > 60 Fasting Glucose 173 H Estimat Average Glucose 100 Hemoglobin A1c % 5.1 Calcium 9.1 Iron 70 TIBC 197 L % Saturation 36 Unsat Iron Binding 127 Total Bilirubin 0.6 AST 46 H ALT 32 Alkaline Phosphatase 79 Total Protein 7.0 Albumin 4.1 Triglycerides 76 Cholesterol 144 LDL Cholesterol, Calc 84 HDL Cholesterol 45 Vitamin B12 349 TSH 2.26 Medications Medications Current Medications Acetaminophen (Acetaminophen 325 Mg Tablet) 650 mg PO Q6H PRN PRN Reason: Headache/Pain Mild Scale (1-3) Last Admin: 06/02/24 08:50 Dose: 650 mg Al Hydroxide/Mg Hydroxide (Magnesium Hydrox/Alum Hydrox 30 Ml Oral.Susp) 30 ml PO Q6H PRN PRN Reason: Heartburn/Nausea Bupropion HCl (Bupropion Hcl Xl 150 Mg Tab.Er.24h) 150 mg PO DAILY MAIRA Last Admin: 06/02/24 08:51 Dose: 150 mg Hydroxyzine HCl (Hydroxyzine Hcl 25 Mg Tablet) 25 mg PO Q6H PRN PRN Reason: Anxiety Last Admin: 05/31/24 23:08 Dose: 25 mg Magnesium Hydroxide (Milk Of Magnesia 30 Ml Oral.Susp) 30 ml PO DAILY PRN PRN Reason: Constipation Naproxen (Naproxen 500 Mg Tablet) 500 mg PO BID PRN PRN Reason: Pain, Moderate(Pain Scale 4-6) Last Admin: 06/02/24 21:06 Dose: 500 mg Nicotine Polacrilex (Nicotine Polacrilex 2 Mg Gum) 4 mg BUCCAL Q2H PRN PRN Reason: Nicotine Cravings Last Admin: 06/02/24 20:04 Dose: 4 mg Quetiapine Fumarate (Quetiapine Fumarate 50 Mg Tablet) 50 mg PO TID MAIRA Last Admin: 06/02/24 21:05 Dose: 50 mg Trazodone HCl (Trazodone Hcl 50 Mg Tablet) 50 mg PO BEDTIME MRX1 PRN PRN Reason: Insomnia Last Admin: 05/31/24 23:09 Dose: 50 mg Allergies Allergies Allergy/AdvReac Type Severity Reaction Status Date / Time fish derived [fish] Allergy Itching Verified 05/31/24 02:45 aspirin [ASA] AdvReac Unknown STOMACH Verified 05/31/24 02:45 UPSET Assessment & Plan Assessment & Plan (1) Mood disorder: Status: Acute Code(s): F39 - Unspecified mood [affective] disorder (2) Opioid use disorder, moderate, dependence: Status: Acute Code(s): F11.20 - Opioid dependence, uncomplicated (3) Cocaine use disorder, moderate, dependence: Status: Acute Code(s): F14.20 - Cocaine dependence, uncomplicated (4) Unsheltered homelessness: Status: Acute Code(s): Z59.02 - Unsheltered homelessness Plan Mr. Linares is a 33 year-old male with hx of opioid and cocaine use disorder who self presented [place] [facility] [place] reporting increase depression, suicidal ideation with recent SA via OD on heroin. Utox positive for fentanyl, cocaine and suboxone. He declines referrals for substance use disorder. He does not want to restart MAT for opioid use. He reports overall his substance use has decreased and he is not interested in substance use treatment. He does report wanting to go back on wellbutrin and seroquel. We discussed risks, benefis and alternative treatment options. Physically he reports muscle pain on both legs as he reports he walked for several miles prior to coming to hospital. Can use tylenol and naproxen for now. PLAN 06/02 continue tx. 06/03 continue same treatment Reason for continued inpatient stay Substantial Risk for: inability to function, rapid decompensation and med/psych decompensation Time Spent With Patient Time: Total time managing care of this patient today __20__ minutes.
[2024-06-03] MEDS: NaPROXEN 500 MG TABLET PO (09:18)
[2024-06-03] MEDS: buPROPion HCl XL 150 MG TAB.ER.24H PO (09:18)
[2024-06-03] MEDS: QUEtiapine Fumarate 50 MG TABLET PO ×2 (09:18→19:54)
[2024-06-03] MEDS: Nicotine Polacrilex 2 MG GUM 4 MG BUCCAL ×3 (16:49→21:20)
[2024-06-03 20:00] VITALS: BP 143/90; PULSE 100; RESP 16; TEMP 36.5; O2SAT 99
[2024-06-03] MEDS: hydrOXYzine HCL 25 MG TABLET PO (20:24)
[2024-06-04] MEDS: Nicotine Polacrilex 2 MG GUM 4 MG BUCCAL ×4 (00:09→20:51)
[2024-06-04 07:35] VITALS: BP 108/75; PULSE 61; RESP 12; TEMP 36.6; O2SAT 97
[2024-06-04] MEDS: QUEtiapine Fumarate 50 MG TABLET PO ×3 (08:32→20:21)
[2024-06-04] MEDS: buPROPion HCl XL 150 MG TAB.ER.24H PO (08:32)
--- NOTE | 2024-06-04 08:57 | P.PNPSI_ITS ---
Subjective Subjective Date of Service: 06/04/24 Reason For Visit: SI Subjective Notes: Conditional Voluntary and 3 Day Interim History: The nursing staff reported the patient been with a flat affect. He refused history p.m. Seroquel stating that it over-sedated him. On interview the patient denies new symptoms, no unsafe behaviors. He wants to leave as soon as possible, he was upset that he can leave until Wednesday. Even though he was able to understand the legalities of the 3 day notice. Mental Status Exam Mental Status Exam Patient Appearance: Appropriate Patient Orientation: Person and Situation Level of Consciousness: Awake and Appropriate Patient Behavior: Guarded and Passive Mood Description: Withdrawn Affect Description: Constricted Patient Cognition Impaired: Yes Ability to Follow Directions: Good Speech Pattern: Clear Hallucinations: None Delusions: Ideas of Reference Thought Process: Distracted and Slowed Thinking Thought Content: positive for [place] Judgement: Fair Diagnostics Vital Signs (24Hr): Vital Signs - 24 hr 06/03/24 20:00 06/04/24 07:35 Temperature 97.7 F 97.8 F Pulse Rate 100 61 Respiratory Rate 16 12 Blood Pressure 143/90 H 108/75 Pulse Oximetry 99 97 Oxygen Delivery Method Room Air Room Air BMI result Body Mass Index 30.9 Labs 05/31/24 03:30 06/01/24 08:40 Medications Medications Current Medications Acetaminophen (Acetaminophen 325 Mg Tablet) 650 mg PO Q6H PRN PRN Reason: Headache/Pain Mild Scale (1-3) Last Admin: 06/02/24 08:50 Dose: 650 mg Al Hydroxide/Mg Hydroxide (Magnesium Hydrox/Alum Hydrox 30 Ml Oral.Susp) 30 ml PO Q6H PRN PRN Reason: Heartburn/Nausea Bupropion HCl (Bupropion Hcl Xl 150 Mg Tab.Er.24h) 150 mg PO DAILY MAIRA Last Admin: 06/04/24 08:32 Dose: 150 mg Hydroxyzine HCl (Hydroxyzine Hcl 25 Mg Tablet) 25 mg PO Q6H PRN PRN Reason: Anxiety Last Admin: 06/03/24 20:24 Dose: 25 mg Magnesium Hydroxide (Milk Of Magnesia 30 Ml Oral.Susp) 30 ml PO DAILY PRN PRN Reason: Constipation Naproxen (Naproxen 500 Mg Tablet) 500 mg PO BID PRN PRN Reason: Pain, Moderate(Pain Scale 4-6) Last Admin: 06/03/24 09:18 Dose: 500 mg Nicotine Polacrilex (Nicotine Polacrilex 2 Mg Gum) 4 mg BUCCAL Q2H PRN PRN Reason: Nicotine Cravings Last Admin: 06/04/24 00:09 Dose: 4 mg Quetiapine Fumarate (Quetiapine Fumarate 50 Mg Tablet) 50 mg PO TID MAIRA Last Admin: 06/04/24 08:32 Dose: 50 mg Trazodone HCl (Trazodone Hcl 50 Mg Tablet) 50 mg PO BEDTIME MRX1 PRN PRN Reason: Insomnia Last Admin: 05/31/24 23:09 Dose: 50 mg Allergies Allergies Allergy/AdvReac Type Severity Reaction Status Date / Time fish derived [fish] Allergy Itching Verified 05/31/24 02:45 aspirin [ASA] AdvReac Unknown STOMACH Verified 05/31/24 02:45 UPSET Assessment & Plan Assessment & Plan (1) Mood disorder: Status: Acute Code(s): F39 - Unspecified mood [affective] disorder (2) Opioid use disorder, moderate, dependence: Status: Acute Code(s): F11.20 - Opioid dependence, uncomplicated (3) Cocaine use disorder, moderate, dependence: Status: Acute Code(s): F14.20 - Cocaine dependence, uncomplicated (4) Unsheltered homelessness: Status: Acute Code(s): Z59.02 - Unsheltered homelessness Plan Mr. Linares is a 33 year-old male with hx of opioid and cocaine use disorder who [place] [facility] [place] increase depression, suicidal ideation with recent SA via OD on heroin. Utox positive for fentanyl, cocaine and suboxone. He declines referrals for substance use disorder. He does not want to restart MAT for opioid use. He reports overall his substance use has decreased and he is not interested in substance use treatment. He does report wanting to go back on wellbutrin and seroquel. We discussed risks, benefis and alternative treatment options. Physically he reports muscle pain on both legs as he reports he walked for several miles prior to coming to hospital. Can use tylenol and naproxen for now. PLAN 06/02 continue tx. 06/03 continue same treatment 06/04 continue same treatment Reason for continued inpatient stay Substantial Risk for: inability to function, rapid decompensation and med/psych decompensation Time Spent With Patient Time: Total time managing care of this patient today ___20_ minutes.
[2024-06-04 20:07] VITALS: BP 118/76; PULSE 118; RESP 16; TEMP 36.3; O2SAT 95
[2024-06-04] MEDS: hydrOXYzine HCL 25 MG TABLET PO (20:21)
[2024-06-05] MEDS: Nicotine Polacrilex 2 MG GUM 4 MG BUCCAL ×2 (07:10→11:17)
[2024-06-05] MEDS: QUEtiapine Fumarate 50 MG TABLET PO (07:38)
[2024-06-05] MEDS: buPROPion HCl XL 150 MG TAB.ER.24H PO (07:38)
[2024-06-05 07:55] VITALS: BP 147/83; PULSE 82; RESP 18; TEMP 36.6; O2SAT 100
--- NOTE | 2024-06-05 11:33 | P.DS_ITS ---
DS: Providers Provider Date of Service: 06/05/24 Date of admission: 05/31/24 14:03 Primary care physician: [facility] DS: Diagnosis Discharge Diagnosis (1) Mood disorder: Status: Acute (2) Opioid use disorder, moderate, dependence: Status: Acute (3) Cocaine use disorder, moderate, dependence: Status: Acute (4) Unsheltered homelessness: Status: Acute DS: Medications Discharge Medications Home Medications: Previous Rx's ?Medication ?Instructions ?Recorded bupropion HCl 150 mg 24 hr tablet, 150 mg PO DAILY 30 days #30 tabs 06/05/24 extended release naloxone 4 mg/actuation nasal 4 mg intranasal Q2M PRN opioid 06/05/24 spray (Narcan) overdose #2 ea nicotine (polacrilex) 2 mg gum 4 mg buccal Q2H PRN Nicotine 06/05/24 Cravings 30 days #120 ea quetiapine 50 mg tablet 50 mg PO TID 30 days #90 tabs 06/05/24 trazodone 50 mg tablet 50 mg PO BEDTIME PRN Insomnia 30 06/05/24 days #30 tabs Mental Status Exam Mental Status Exam Narrative: Appearance: wearing own clothes, fair hygiene, in NAD Behavior: cooperative Psychomotor: no agitation or retardation noted Speech: clear, normal rate/rhythm/volume, spontaneous TP: linear, logical TC: wanting to leave Mood: i feel good Affect: congruent SI: none HI: none VH/AH: none Delusions: none Insight/judgment: fair x 2 Memory/cog: alert, oriented x 3.grossly intact to conversational testing. Data Data Completed and Pending Completed studies during hospitalization [Text1]: 05/31/24 05/31/24 06/01/24 03:30 03:31 08:40 WBC 7.4 RBC 4.56 L Hgb 13.5 L Hct 38.8 L MCV 85.1 MCH 29.6 MCHC 34.8 RDW 12.1 Plt Count 238 MPV 10.3 Immature Gran % (Auto) 0.3 Neut % (Auto) 74.1 H Lymph % (Auto) 20.5 Falls % (Auto) 4.6 Eos % (Auto) 0.1 Baso % (Auto) 0.4 Lymph # (Auto) 1.5 Falls # (Auto) 0.3 Eos # (Auto) 0.0 Baso # (Auto) 0.0 Abs Immat Gran (auto) 0.02 Absolute Neuts (auto) 5.5 Absolute Nucleated RBC 0.000 Nucleated RBC % (auto) 0.0 Sodium 142 138 Potassium 4.1 3.9 Chloride 103 102 Carbon Dioxide 24 26 Anion Gap 19 14 BUN 23 H 14 Creatinine 0.97 0.86 Estim Creat Clear Calc 128.4 143.8 Estimated GFR > 60 > 60 Random Glucose 76 Fasting Glucose 173 H Estimat Average Glucose 100 Hemoglobin A1c % 5.1 Calcium 9.3 D 9.1 Iron TIBC % Saturation Unsat Iron Binding Total Bilirubin 0.9 0.6 AST 61 H 46 H ALT 23 32 Alkaline Phosphatase 84 79 Total Protein 7.5 7.0 Albumin 4.5 4.1 Triglycerides 76 Cholesterol 144 LDL Cholesterol, Calc 84 HDL Cholesterol 45 Vitamin B12 349 TSH 2.26 Urine Color Yellow Urine Appearance Clear Urine pH 5.5 Ur Specific [place] 1.025 Urine Protein Negative Urine Glucose (UA) Negative Urine Ketones 40 Urine Blood Negative Urine Nitrite Negative Ur Leukocyte Esterase Negative Salicylates < 5.0 L Urine Opiates Screen Not Detected Ur Buprenorphine Scrn Positive H Ur Oxycodone Screen Not Detected Urine Methadone Screen Not Detected Urine Fentanyl Screen POSITIVE H Acetaminophen < 3 Ur Barbiturates Screen Not Detected Ur Phencyclidine Scrn Not Detected Ur Amphetamines Screen Not Detected U Benzodiazepines Scrn Not Detected Urine Cocaine Screen POSITIVE H U Marijuana (THC) Screen Not Detected Ethyl Alcohol 18 06/01/24 11:59 WBC RBC Hgb Hct MCV MCH MCHC RDW Plt Count MPV Immature Gran % (Auto) Neut % (Auto) Lymph % (Auto) Falls % (Auto) Eos % (Auto) Baso % (Auto) Lymph # (Auto) Falls # (Auto) Eos # (Auto) Baso # (Auto) Abs Immat Gran (auto) Absolute Neuts (auto) Absolute Nucleated RBC Nucleated RBC % (auto) Sodium Potassium Chloride Carbon Dioxide Anion Gap BUN Creatinine Estim Creat Clear Calc Estimated GFR Random Glucose Fasting Glucose Estimat Average Glucose Hemoglobin A1c % Calcium Iron 70 TIBC 197 L % Saturation 36 Unsat Iron Binding 127 Total Bilirubin AST ALT Alkaline Phosphatase Total Protein Albumin Triglycerides Cholesterol LDL Cholesterol, Calc HDL Cholesterol Vitamin B12 TSH Urine Color Urine Appearance Urine pH Ur Specific [place] Urine Protein Urine Glucose (UA) Urine Ketones Urine Blood Urine Nitrite Ur Leukocyte Esterase Salicylates Urine Opiates Screen Ur Buprenorphine Scrn Ur Oxycodone Screen Urine Methadone Screen Urine Fentanyl Screen Acetaminophen Ur Barbiturates Screen Ur Phencyclidine Scrn Ur Amphetamines Screen U Benzodiazepines Scrn Urine Cocaine Screen U Marijuana (THC) Screen Ethyl Alcohol DS: Summary Hospital Course Hospital Course: per 06/01 admission note: HPI Subjective Notes: Steven Warning (given and shows understanding) and Conditional Voluntary Narrative: Mr. Linares is a 33 year-old male with hx of opioid use disorder, cocaine use disorder, mood disorder who self presented reporting increase depression, suicidal ideation. He reports recent suicide attempts via OD on substances. He reports day prior to presenting to ED he attempted to use 10 bags of heroin but couldn't find a vein. He decided to seek help. In the ED, his utox is positive for fentanyl, suboxone (he used to be on suboxone, not anymore and declines restating this medication), cocaine. Labs include: cbc with normocytic anemia, CMP with no electrolyte abnormality. BUN slightly elevated with normal creatinine. AST slightly elevated, ALT wnl. On the unit, pt endorses depressed mood, anxious mood. He denies SI/HI. He denies hx of visual or auditory hallucinations. He identified multiple stressors including lack of stable housing, relapsed on opioid and cocaine. He reports he was recently at detox and was taken off wellbutrin and seroquel and thinks his mood was off after this. In terms of substance use, pt reports he has been off sublocade since March. He denies increased use of opioids. He reports he had only one time use. He declines further referrals for substance use disorder. He reports he plans to go to his brother's house and stay with him. Past Psychiatric History: Inpt: last admission about 5 years ago OP: none Past trials: seroquel, wellbutrin, clonidine ( made me feel weird clarifies that he had dizziness and lightheadedness). Medical Evaluation Reviewed: Yes [facility] Medical History Anxiety Polysubstance abuse Surgical History No pertinent past surgical history Family History: none Social History: Pt currently not working. He lack stable housing. Substance History: He reports using opioid for several years on and off. He reports less use in the past 4-5 years cocaine: reports sporadic use, but does not quantify Trauma History: not disclosed. Precis: Mr. Linares is a 33 year-old male with hx of opioid and cocaine use disorder who self presented to [facility] ED reporting increase depression, suicidal ideation with recent SA via OD on heroin. Utox positive for fentanyl, cocaine and suboxone. He declines referrals for substance use disorder. He does not want to restart MAT for opioid use. He reports overall his substance use has decreased and he is not interested in substance use treatment. He does report wanting to go back on wellbutrin and seroquel. We discussed risks, benefis and alternative treatment options. Physically he reports muscle pain on both legs as he reports he walked for several miles prior to coming to hospital. Can use tylenol and naproxen for now. PLAN 06/02 continue tx. 06/03 continue same treatment 06/04 continue same treatment 06/05: safe, stable. meds reviewed, reconciled, prescribed. pt discharged as per his preference. Time Spent with Patient Time attestation: Total time managing care of this patient today __35__ minutes. Discharge Plan Discharge Anticipated Discharge Date/Time: 06/05/24 12:00 Patient Disposition: Home, Self-Care Discharge Diagnosis: Substance-Induced Mood Disorder Cocaine Use Disorder Opioid Use Disorder Referrals: Yoan Armstrong (Therapy) [Other] - 06/07/24 12:00 pm (IN OFFICE APPOINTMENT -Please arrive 15 minutes early to your appointment in order to fill out the necessary paperwork. ) Clair Johnson (Psychiatry) [Other] - 06/27/24 1:00 pm (TELEHEALTH APPOINTMENT -Psychiatric Evaluation ) Clair Johnson (Psychiatry) [Other] - 07/26/24 1:00 pm (TELEHEALTH APPOINTMENT -Medication Management ) Mozier,[facility] [Primary Care Provider] - 06/14/24 9:45 am (Your follow up appt has been scheduled at [facility] for 06-14-24 @ 9:45am. Please call [phone] if you need to cancel or reschedule your appt. This appt will cover your discharge follow up and new admission appt to obtain a new primary care physician.) Discharge Medications: New nicotine (polacrilex) 2 mg Gum 4 mg buccal Q2H PRN (Reason: Nicotine Cravings) 30 Days Qty: 120 0RF trazodone 50 mg Tablet 50 mg PO BEDTIME PRN (Reason: Insomnia) 30 Days Qty: 30 0RF bupropion HCl 150 mg Tablet Extended Release 24 Hr 150 mg PO DAILY 30 Days Qty: 30 0RF quetiapine 50 mg Tablet 50 mg PO TID 30 Days Qty: 90 0RF naloxone [Narcan] 4 mg/actuation spray,non-aerosol 4 mg intranasal Q2M PRN (Reason: opioid overdose) Qty: 2 0RF Rx Instructions: spray 1 dose into ONE nostril; alternate nostrils w each dose until help arrives Discharge Orders: Discharge Order (Routine); Ordered 06/05/24 Ordered By: Zurdo Finn Diet: Advance to usual diet Activity on Discharge: As tolerated Stand Alone Forms: Patient Portal Discharge page, Community Support Print Language: Sammarinese Care Plan Goals: remain safe, stable, and sober in the outpatient treatment setting Health Concerns: none Plan of Treatment: take medications as prescribed, attend appointments as scheduled Assessment: not at imminent risk of harm to self or others Discharge Date/Time: 06/05/24 11:53
== END 2024-06-05 11:53 | disposition home or self-care (01) | DRG 773 ==
LOC: HO.ED 08:06 → HO.PADLT16 14:10
PROVIDERS: Emergency Medicine Emergency Medical Services; Physician Assistant Medical; Admitting Provider Social Worker; Emergency Provider Student in an Organized Health Care Education/Training Program; Visit Provider Psychiatry & Neurology Psychiatry
DX: F19.94 Other psychoactive substance use, unspecified with psychoactive substance-induced mood disorder (principal); F11.20 Opioid dependence, uncomplicated; R45.851 Suicidal ideations; F17.210 Nicotine dependence, cigarettes, uncomplicated; F14.20 Cocaine dependence, uncomplicated; Z71.6 Tobacco abuse counseling; Z59.02 Unsheltered homelessness; Z91.51 Personal history of suicidal behavior; Z79.899 Other long term (current) drug therapy
CPT/HCPCS: 36415; 80053; 80061; 80143; 80179; 80307; 81003; 82607; 83036; 83540; 84443; 85025; 93005; 99285; S9485

== ENCOUNTER → 2024-05-31 10:07 | Outpatient (BNV) | payer MEDICAID, SELFPAY | PROVIDERS: Admitting Provider Social Worker; Emergency Provider Student in an Organized Health Care Education/Training Program; Visit Provider Internal Medicine Cardiovascular Disease | DX: F39 Unspecified mood [affective] disorder (principal); F11.20 Opioid dependence, uncomplicated; F14.20 Cocaine dependence, uncomplicated | CPT/HCPCS: 93010 ==

== ENCOUNTER → 2024-05-31 14:03 | Outpatient (BNV) | payer OTHER, SELFPAY | PROVIDERS: Admitting Provider Social Worker; Emergency Provider Student in an Organized Health Care Education/Training Program; Visit Provider Social Worker | DX: F39 Unspecified mood [affective] disorder (principal); F11.20 Opioid dependence, uncomplicated; F14.20 Cocaine dependence, uncomplicated; Z59.02 Unsheltered homelessness | CPT/HCPCS: 99231; 99232 ==